=== PATIENT | male | born 1935 | race Caucasian/White ===

== ENCOUNTER 2019-09-02 08:57 | Inpatient (IN) | payer OTHER ==
--- OUTSIDE RECORDS SUMMARY | 2019-09-02 09:03 | XMS REPORT ---
:1935 [facility] [address] [place] [address] Care Team Providers Name Role Phone DR PHILIP BUTLER Unavailable Unavailable Problems This patient has no known problems. Allergies, Adverse Reactions, Alerts This patient has no known allergies or adverse reactions. Medications This patient has no known medications. Encounters Start End Encounter Admission Attending Care Care Encounter Date/Time Date/Time Type Type Clinicians Facility Department ID 2019-06-19 2019-06-28 Inpatient C PHILIP BUTLER [facility] [place] [facility] TELE [id number] 21:41:00 17:15:00 Results Test Description Test Time Test Comments Text Results Atomic Results Result Comments GLUCOMETER GLUCOSE- LAB USE ONLY 2019-06-28 11:07:00 Test Item Value Reference Range Comments GLUCOMETER (test code=GMG) 165 mg/dL 70-100 CLEANED METERMeter ID: [id number]: 9861 JOHN LOWE BODY FLUID & GRAM STAIN [id number] 09:11:00 Test Item Value Reference Range Comments Culture Observations (test NO GROWTH AFTER 5 DAYS code=COB1) Direct Exam (test code=DE1) RARE WHITE BLOOD CELLS SEEN Direct Exam (test code=DE2) NO ORGANISMS SEEN GLUCOMETER GLUCOSE- LAB USE [id number] 08:09:00 Test Item Value Reference Range Comments GLUCOMETER (test code=GMG) 103 mg/dL 70-100 Meter ID: [id number]: 9174 JOHN AMAGSILA GLUCOMETER GLUCOSE- LAB USE [id number] 06:28:00 Test Item Value Reference Range Comments GLUCOMETER (test code=GMG) 60 mg/dL 70-100 CLEANED METERMeter ID: [id number]: [id number] MARIA TERESA HAMPTON CBC (INCLUDES AUTOMATED DIFFERENTIAL)2019-06-28 05:58:00 Test Item Value Reference Range Comments WBC (test code=WBC) 8.3 10\S\3/uL 4.5-11.0 RBC (test code=RBC) 3.94 10\S\6/uL 3.80-5.80 HGB (test code=HBG) 13.2 g/dL 14.0-18.0 HCT (test code=HCT) 40.0 % 35.0-46.0 MCV (test code=MCV) 101.5 fL 80.0-94.0 MCH (test code=MCH) 33.5 pg 27.0-31.0 MCHC (test code=MCHC) 33.0 g/dL 32.0-36.0 RDW (test code=RDW) 14.7 % 11.5-14.5 PLT (test code=PLT) 56 10\S\3/uL 130-400 MPV (test code=MPV) 12.4 fL 9.4-12.4 NEUTROP # (test code=NE#) 4.9 10\S\3/uL 2.0-8.0 LYMPH # (test code=LY#) 2.2 10\S\3/uL 1.2-4.0 MONOCYTE # (test code=MO#) 0.9 10\S\3/uL 0.0-1.1 EOSINOPH # (test code=EO#) 0.2 10\S\3/uL 0.0-0.7 BASOPHIL # (test code=BA#) 0.0 10\S\3/uL 0.0-0.3 IG # (test code=IG#) 0.07 10\S\3/uL 0.00-0.06 NRBC # (test code=NRBC#) 0.00 10\S\3/uL 0.00-0.01 NEUTROPH % (test code=NE%) 58.5 % 35.0-73.0 LYMPH % (test code=LY%) 26.2 % 20.0-55.0 MONO % (test code=MO%) 11.2 % 2.5-10.0 EOSINOPH % (test code=EO%) 2.9 % 0.0-5.0 BASOPHIL % (test code=BA%) 0.4 % 0.0-2.0 IG % (test code=IG%) 0.8 % 0.0-0.8 NRBC% (test code=NRBC%) 0.0 % 0.0-0.2 MANDIFF (test code=MDIFF) NO NO RBC MORPH (test code=RBCMOR) NORMAL COMPREHENSIVE METABOLIC [id number] 05:56:00 Test Item Value Reference Range Comments GLUCOSE (test code=06D) 68 mg/dL 75-100 SODIUM (test code=01A) 131 mmol/L 136-145 POTASSIUM (test code=01B) 5.1 mmol/L 3.6-5.1 CHLORIDE (test code=04A) 96 mmol/L 98-107 CO2 (test code=02A) 25 mmol/L 22-32 ANION GAP (test code=ANG) 15.1 mmol/L BUN (test code=05D) 92 mg/dL 7-18 CREATININE (test code=03E) 8.9 mg/dL 0.7-1.3 BUN/CREA (test code=BCR) 10 12-20 CALCIUM (test code=09D) 8.2 mg/dL 8.3-9.5 BILI TOTAL (test code=11A) 1.4 mg/dL 0.2-1.0 PROTEIN (test code=07D) 7.3 g/dL 6.4-8.2 ALBUMIN (test code=08D) 3.1 g/dL 3.5-4.8 GLOBULIN (test code=GLB) 4.2 g/dL 1.5-3.8 ALB/GLOB (test code=AGRR) 0.7 1.0-2.6 ALK PHOS (test code=35A) 90 IU/L 42-121 AST (test code=30A) 37 IU/L <=42 ALT (test code=31A) 103 IU/L <=78 GLUCOMETER GLUCOSE- LAB USE [id number] 20:28:00 Test Item Value Reference Range Comments GLUCOMETER (test code=GMG) 186 mg/dL 70-100 Meter ID: [id number]: 4074 MARIA TERESA BERTA GLUCOMETER GLUCOSE- LAB USE [id number] 16:09:00 Test Item Value Reference Range Comments GLUCOMETER (test code=GMG) 148 mg/dL 70-100 CLEANED METERMeter ID: [id number]: 9861 JOHN LOWE GLUCOMETER GLUCOSE- LAB USE [id number] 10:45:00 Test Item Value Reference Range Comments GLUCOMETER (test code=GMG) 201 mg/dL 70-100 CLEANED METERMeter ID: [id number]: 9[address] JOHN LOWE [id number] 09:38:00 Test Item Value Reference Range Comments MAGNESIUM (test code=48A) 2.1 mg/dL 1.8-2.4 COMPREHENSIVE METABOLIC [id number] 06:28:00 Test Item Value Reference Range Comments GLUCOSE (test code=06D) 108 mg/dL 75-100 SODIUM (test code=01A) 132 mmol/L 136-145 POTASSIUM (test code=01B) 4.7 mmol/L 3.6-5.1 CHLORIDE (test code=04A) 98 mmol/L 98-107 CO2 (test code=02A) 25 mmol/L 22-32 ANION GAP (test code=ANG) 13.7 mmol/L BUN (test code=05D) 70 mg/dL 7-18 CREATININE (test code=03E) 8.0 mg/dL 0.7-1.3 BUN/CREA (test code=BCR) 9 12-20 CALCIUM (test code=09D) 8.2 mg/dL 8.3-9.5 BILI TOTAL (test code=11A) 1.5 mg/dL 0.2-1.0 PROTEIN (test code=07D) 7.4 g/dL 6.4-8.2 ALBUMIN (test code=08D) 3.2 g/dL 3.5-4.8 GLOBULIN (test code=GLB) 4.2 g/dL 1.5-3.8 ALB/GLOB (test code=AGRR) 0.8 1.0-2.6 ALK PHOS (test code=35A) 92 IU/L 42-121 AST (test code=30A) 42 IU/L <=42 ALT (test code=31A) 122 IU/L <=78 GLUCOMETER GLUCOSE- LAB USE [id number] 06:25:00 Test Item Value Reference Range Comments GLUCOMETER (test code=GMG) 99 mg/dL 70-100 Meter ID: [id number]: [id number] MARIVEL SNOW CBC (INCLUDES AUTOMATED DIFFERENTIAL)2019-06-27 06:12:00 Test Item Value Reference Range Comments WBC (test code=WBC) 8.4 10\S\3/uL 4.5-11.0 RBC (test code=RBC) 3.75 10\S\6/uL 3.80-5.80 HGB (test code=HBG) 12.5 g/dL 14.0-18.0 HCT (test code=HCT) 38.6 % 35.0-46.0 MCV (test code=MCV) 102.9 fL 80.0-94.0 MCH (test code=MCH) 33.3 pg 27.0-31.0 MCHC (test code=MCHC) 32.4 g/dL 32.0-36.0 RDW (test code=RDW) 15.1 % 11.5-14.5 PLT (test code=PLT) 54 10\S\3/uL 130-400 MPV (test code=MPV) 12.4 fL 9.4-12.4 NEUTROP # (test code=NE#) 4.9 10\S\3/uL 2.0-8.0 LYMPH # (test code=LY#) 2.2 10\S\3/uL 1.2-4.0 MONOCYTE # (test code=MO#) 0.9 10\S\3/uL 0.0-1.1 EOSINOPH # (test code=EO#) 0.2 10\S\3/uL 0.0-0.7 BASOPHIL # (test code=BA#) 0.0 10\S\3/uL 0.0-0.3 IG # (test code=IG#) 0.09 10\S\3/uL 0.00-0.06 NRBC # (test code=NRBC#) 0.00 10\S\3/uL 0.00-0.01 NEUTROPH % (test code=NE%) 58.5 % 35.0-73.0 LYMPH % (test code=LY%) 26.5 % 20.0-55.0 MONO % (test code=MO%) 11.0 % 2.5-10.0 EOSINOPH % (test code=EO%) 2.5 % 0.0-5.0 BASOPHIL % (test code=BA%) 0.4 % 0.0-2.0 IG % (test code=IG%) 1.1 % 0.0-0.8 NRBC% (test code=NRBC%) 0.0 % 0.0-0.2 MANDIFF (test code=MDIFF) NO NO RBC MORPH (test code=RBCMOR) NORMAL GLUCOMETER GLUCOSE- LAB USE [id number] 20:22:00 Test Item Value Reference Range Comments GLUCOMETER (test code=GMG) 191 mg/dL 70-100 Meter ID: [id number]: [id number] MARIVEL Raúl SNOW GLUCOMETER GLUCOSE- LAB USE [id number] 15:34:00 Test Item Value Reference Range Comments GLUCOMETER (test code=GMG) 155 mg/dL 70-100 CLEANED METERMeter ID: [id number]: 9861 JOHN LOWE GLUCOMETER GLUCOSE- LAB USE [id number] 11:18:00 Test Item Value Reference Range Comments GLUCOMETER (test code=GMG) 92 mg/dL 70-100 CLEANED METERMeter ID: [id number]: 9861 JOHN LOWE CBC WITH [id number] 07:06:00 Test Item Value Reference Range Comments WBC (test code=WBC) 9.3 10\S\3/uL 4.5-11.0 RBC (test code=RBC) 3.66 10\S\6/uL 3.80-5.80 HGB (test code=HBG) 12.3 g/dL 14.0-18.0 HCT (test code=HCT) 38.1 % 35.0-46.0 MCV (test code=MCV) 104.1 fL 80.0-94.0 MCH (test code=MCH) 33.6 pg 27.0-31.0 MCHC (test code=MCHC) 32.3 g/dL 32.0-36.0 RDW (test code=RDW) 15.0 % 11.5-14.5 PLT (test code=PLT) 51 10\S\3/uL 130-400 MPV (test code=MPV) 12.7 fL 9.4-12.4 NEUTROP # (test code=NE#) 5.5 10\S\3/uL 2.0-8.0 LYMPH # (test code=LY#) 2.4 10\S\3/uL 1.2-4.0 MONOCYTE # (test code=MO#) 1.0 10\S\3/uL 0.0-1.1 EOSINOPH # (test code=EO#) 0.2 10\S\3/uL 0.0-0.7 BASOPHIL # (test code=BA#) 0.0 10\S\3/uL 0.0-0.3 IG # (test code=IG#) 0.08 10\S\3/uL 0.00-0.06 NRBC # (test code=NRBC#) 0.00 10\S\3/uL 0.00-0.01 NEUTROPH % (test code=NE%) 59.7 % 35.0-73.0 LYMPH % (test code=LY%) 26.3 % 20.0-55.0 MONO % (test code=MO%) 10.6 % 2.5-10.0 EOSINOPH % (test code=EO%) 2.2 % 0.0-5.0 BASOPHIL % (test code=BA%) 0.3 % 0.0-2.0 IG % (test code=IG%) 0.9 % 0.0-0.8 NRBC% (test code=NRBC%) 0.0 % 0.0-0.2 PLT EST (test code=PLTEST) DECREASED ADEQUATE PLT MORPH (test code=PLTMOR) NORMAL (1.5-3 um) NORMAL GLUCOMETER GLUCOSE- LAB USE [id number] 05:57:00 Test Item Value Reference Range Comments GLUCOMETER (test code=GMG) 79 mg/dL 70-100 CLEANED METERMeter ID: [id number]: 4074 [facility] METABOLIC [id number] 05:35:00 Test Item Value Reference Range Comments GLUCOSE (test code=06D) 93 mg/dL 75-100 SODIUM (test code=01A) 134 mmol/L 136-145 POTASSIUM (test code=01B) 4.9 mmol/L 3.6-5.1 CHLORIDE (test code=04A) 99 mmol/L 98-107 CO2 (test code=02A) 24 mmol/L 22-32 ANION GAP (test code=ANG) 15.9 mmol/L BUN (test code=05D) 95 mg/dL 7-18 CREATININE (test code=03E) 9.7 mg/dL 0.7-1.3 BUN/CREA (test code=BCR) 10 12-20 CALCIUM (test code=09D) 8.0 mg/dL 8.3-9.5 BILI TOTAL (test code=11A) 1.4 mg/dL 0.2-1.0 PROTEIN (test code=07D) 6.9 g/dL 6.4-8.2 ALBUMIN (test code=08D) 3.0 g/dL 3.5-4.8 GLOBULIN (test code=GLB) 3.9 g/dL 1.5-3.8 ALB/GLOB (test code=AGRR) 0.8 1.0-2.6 ALK PHOS (test code=35A) 84 IU/L 42-121 AST (test code=30A) 37 IU/L <=42 ALT (test code=31A) 146 IU/L <=78 GLUCOMETER GLUCOSE- LAB USE [id number] 20:27:00 Test Item Value Reference Range Comments GLUCOMETER (test code=GMG) 146 mg/dL 70-100 Meter ID: [id number]: 4074 MARIA TERESA BERTA GLUCOMETER GLUCOSE- LAB USE [id number] 15:50:00 Test Item Value Reference Range Comments GLUCOMETER (test code=GMG) 167 mg/dL 70-100 CLEANED METERMeter ID: [id number]: 9861 JOHN LOWE GLUCOMETER GLUCOSE- LAB USE [id number] 11:15:00 Test Item Value Reference Range Comments GLUCOMETER (test code=GMG) 127 mg/dL 70-100 CLEANED METERMeter ID: [id number]: 9861 JOHN LOWE XR CHEST 1 VIEW [id number] 06:29:51Portable AP chest, 1 viewLocation Code: A3WROYCTNS HISTORY: [id number]: Pulmonary congestionCOMPARISON: COMMENT: The heart size is enlarged with diffuse pulmonary edema pattern along withpatchy bibasilar infiltrates and small effusions without significant change.Left subclavian AICD along with prior sternotomy again noted.IMPRESSION: No significant change.COMPREHENSIVE METABOLIC [id number] 05:57:00 Test Item Value Reference Range Comments GLUCOSE (test code=06D) 110 mg/dL 75-100 SODIUM (test code=01A) 133 mmol/L 136-145 POTASSIUM (test code=01B) 4.7 mmol/L 3.6-5.1 CHLORIDE (test code=04A) 100 mmol/L 98-107 CO2 (test code=02A) 25 mmol/L 22-32 ANION GAP (test code=ANG) 12.7 mmol/L BUN (test code=05D) 80 mg/dL 7-18 CREATININE (test code=03E) 8.3 mg/dL 0.7-1.3 BUN/CREA (test code=BCR) 10 12-20 CALCIUM (test code=09D) 8.0 mg/dL 8.3-9.5 BILI TOTAL (test code=11A) 1.9 mg/dL 0.2-1.0 PROTEIN (test code=07D) 6.8 g/dL 6.4-8.2 ALBUMIN (test code=08D) 3.0 g/dL 3.5-4.8 GLOBULIN (test code=GLB) 3.8 g/dL 1.5-3.8 ALB/GLOB (test code=AGRR) 0.8 1.0-2.6 ALK PHOS (test code=35A) 82 IU/L 42-121 AST (test code=30A) 41 IU/L <=42 ALT (test code=31A) 186 IU/L <=78 GLUCOMETER GLUCOSE- LAB USE [id number] 05:55:00 Test Item Value Reference Range Comments GLUCOMETER (test code=GMG) 100 mg/dL 70-100 Meter ID: [id number]: 9586 ZULEIKA UKAGWU CBC (INCLUDES AUTOMATED DIFFERENTIAL)2019-06-25 05:34:00 Test Item Value Reference Range Comments WBC (test code=WBC) 8.0 10\S\3/uL 4.5-11.0 RBC (test code=RBC) 3.97 10\S\6/uL 3.80-5.80 HGB (test code=HBG) 13.1 g/dL 14.0-18.0 HCT (test code=HCT) 40.4 % 35.0-46.0 MCV (test code=MCV) 101.8 fL 80.0-94.0 MCH (test code=MCH) 33.0 pg 27.0-31.0 MCHC (test code=MCHC) 32.4 g/dL 32.0-36.0 RDW (test code=RDW) 15.0 % 11.5-14.5 PLT (test code=PLT) 39 10\S\3/uL 130-400 MPV (test code=MPV) 12.3 fL 9.4-12.4 NEUTROP # (test code=NE#) 4.4 10\S\3/uL 2.0-8.0 LYMPH # (test code=LY#) 2.6 10\S\3/uL 1.2-4.0 MONOCYTE # (test code=MO#) 0.7 10\S\3/uL 0.0-1.1 EOSINOPH # (test code=EO#) 0.2 10\S\3/uL 0.0-0.7 BASOPHIL # (test code=BA#) 0.0 10\S\3/uL 0.0-0.3 IG # (test code=IG#) 0.10 10\S\3/uL 0.00-0.06 NRBC # (test code=NRBC#) 0.00 10\S\3/uL 0.00-0.01 NEUTROPH % (test code=NE%) 54.8 % 35.0-73.0 LYMPH % (test code=LY%) 32.2 % 20.0-55.0 MONO % (test code=MO%) 8.9 % 2.5-10.0 EOSINOPH % (test code=EO%) 2.3 % 0.0-5.0 BASOPHIL % (test code=BA%) 0.5 % 0.0-2.0 IG % (test code=IG%) 1.3 % 0.0-0.8 NRBC% (test code=NRBC%) 0.0 % 0.0-0.2 MANDIFF (test code=MDIFF) NO NO RBC MORPH (test code=RBCMOR) NORMAL GLUCOMETER GLUCOSE- LAB USE [id number] 20:42:00 Test Item Value Reference Range Comments GLUCOMETER (test code=GMG) 178 mg/dL 70-100 Meter ID: [id number]: 9722 MEIR DARIUSU GLUCOMETER GLUCOSE- LAB USE [id number] 15:50:00 Test Item Value Reference Range Comments GLUCOMETER (test code=GMG) 163 mg/dL 70-100 CLEANED METERMeter ID: [id number]: 9861 JOHN LOWE GLUCOMETER GLUCOSE- LAB USE [id number] 11:08:00 Test Item Value Reference Range Comments GLUCOMETER (test code=GMG) 132 mg/dL 70-100 CLEANED METERMeter ID: [id number]: 9861 JOHN LOWE XR CHEST 1 VIEW [id number] 08:03:01EXAM: Portable chest one view.Location code:[id number]: DyspneaCOMPARISON: None available.COMMENT: Again noted is a left-sided AICD and mediastinal wires.. Stableprominent interstitial lung markings.. . Cardiac silhouette is normal insize and contour. Visualized skeletal structures are unremarkable.IMPRESSION: No significant interval change.GLUCOMETER GLUCOSE- LAB USE [id number] 07:24:00 Test Item Value Reference Range Comments GLUCOMETER (test code=GMG) 94 mg/dL 70-100 Meter ID: [id number]: [address] [facility] COMPREHENSIVE METABOLIC [id number] 06:13:00 Test Item Value Reference Range Comments GLUCOSE (test code=06D) 93 mg/dL 75-100 SODIUM (test code=01A) 136 mmol/L 136-145 POTASSIUM (test code=01B) 4.0 mmol/L 3.6-5.1 CHLORIDE (test code=04A) 100 mmol/L 98-107 CO2 (test code=02A) 29 mmol/L 22-32 ANION GAP (test code=ANG) 11.0 mmol/L BUN (test code=05D) 56 mg/dL 7-18 CREATININE (test code=03E) 6.6 mg/dL 0.7-1.3 BUN/CREA (test code=BCR) 9 12-20 CALCIUM (test code=09D) 8.2 mg/dL 8.3-9.5 BILI TOTAL (test code=11A) 2.2 mg/dL 0.2-1.0 PROTEIN (test code=07D) 6.8 g/dL 6.4-8.2 ALBUMIN (test code=08D) 3.1 g/dL 3.5-4.8 GLOBULIN (test code=GLB) 3.7 g/dL 1.5-3.8 ALB/GLOB (test code=AGRR) 0.8 1.0-2.6 ALK PHOS (test code=35A) 83 IU/L 42-121 AST (test code=30A) 58 IU/L <=42 ALT (test code=31A) 239 IU/L <=78 CBC (INCLUDES AUTOMATED DIFFERENTIAL)2019-06-24 05:55:00 Test Item Value Reference Range Comments WBC (test code=WBC) 7.9 10\S\3/uL 4.5-11.0 RBC (test code=RBC) 3.84 10\S\6/uL 3.80-5.80 HGB (test code=HBG) 12.9 g/dL 14.0-18.0 HCT (test code=HCT) 39.1 % 35.0-46.0 MCV (test code=MCV) 101.8 fL 80.0-94.0 MCH (test code=MCH) 33.6 pg 27.0-31.0 MCHC (test code=MCHC) 33.0 g/dL 32.0-36.0 RDW (test code=RDW) 15.4 % 11.5-14.5 PLT (test code=PLT) 36 10\S\3/uL 130-400 MPV (test code=MPV) 12.3 fL 9.4-12.4 NEUTROP # (test code=NE#) 4.8 10\S\3/uL 2.0-8.0 LYMPH # (test code=LY#) 2.3 10\S\3/uL 1.2-4.0 MONOCYTE # (test code=MO#) 0.6 10\S\3/uL 0.0-1.1 EOSINOPH # (test code=EO#) 0.1 10\S\3/uL 0.0-0.7 BASOPHIL # (test code=BA#) 0.0 10\S\3/uL 0.0-0.3 IG # (test code=IG#) 0.10 10\S\3/uL 0.00-0.06 NRBC # (test code=NRBC#) 0.02 10\S\3/uL 0.00-0.01 NEUTROPH % (test code=NE%) 60.8 % 35.0-73.0 LYMPH % (test code=LY%) 28.6 % 20.0-55.0 MONO % (test code=MO%) 7.4 % 2.5-10.0 EOSINOPH % (test code=EO%) 1.6 % 0.0-5.0 BASOPHIL % (test code=BA%) 0.3 % 0.0-2.0 IG % (test code=IG%) 1.3 % 0.0-0.8 NRBC% (test code=NRBC%) 0.3 % 0.0-0.2 MANDIFF (test code=MDIFF) NO NO RBC MORPH (test code=RBCMOR) NORMAL GLUCOMETER GLUCOSE- LAB USE [id number] 20:02:00 Test Item Value Reference Range Comments GLUCOMETER (test code=GMG) 165 mg/dL 70-100 CLEANED METERMeter ID: [id number]: 5742 MIAH OLMOS CELL COUNT & DIFF PERITON [id number] 16:55:00 Test Item Value Reference Range Comments FLD_TYPE (test code=FLDTYPE) PERITONEAL COLOR BF (test code=COLBF) XANTHACHROMIC APPEAR BF (test code=APPBF) CLOUDY WBC BF (test code=WBCCBF) 0.872 10\S\3/uL RBC BF (test code=RBCCBF) 0.008 10\S\6/uL MN# (test code=MN#) 0.808 10\S\3/uL MN % (test code=MN%) 92.7 % PMN# (test code=PMN#) 0.064 10\S\3/uL PMN % (test code=PMN%) 7.3 % NEUTRO BF (test code=NEUTBF) 8 % LYMPH BF (test code=LYMPBF) 72 % MONO BF (test code=MONOBF) 2 % EOS BF (test code=EOSBF) % BASO BF (test code=BABF) % MESOTHELIA (test code=MESOBF) 6 % MACROPH BF (test 12 % code=MACROBF) PLASMA BF (test code=PLSMBF) % OTHER BF (test code=OTHBF) % COMMENT (test code=CO) RRPRF (test code=RRPRF) REFERENCE RANGE PERITONEAL FLUID COLOR PALE YELLOW/STRAW CLARITY CLEAR WBC <100/CMM RBC 0/CMM MACROPHAGES &MESOTHELIAL CELLS >70% LYMPHOCYTES <18% NEUTROPHILS <7% PROTEIN BODY [id number] 16:25:00 Test Item Value Reference Range Comments PROT BF (test code=PBF) 4.1 g/dL SOURCE (test code=BFC) PERITONEAL NRR (test code=NRR) * NO REFRENCE RANGE AVAILABLE FOR RANDOM SPECIMEN* ALBUMIN BODY [id number] 16:20:00 Test Item Value Reference Range Comments ALBUMIN FLUID (test 2 g/dL code=ALBF) SOURCE (test code=BFC) PERITONEAL NRR (test code=NRR) * NO REFRENCE RANGE AVAILABLE FOR RANDOM SPECIMEN* U/S GUIDANCE [id number] 16:12:26EXAMINATION: IMAGE-GUIDED PARACENTESIS.LOCATION: D4.HISTORY: [id number]: AscitesSEDATION: The patientdid not require conscious sedation for the procedure.ANTIBIOTICS: None. Not indicated.TECHNIQUE: The risks, benefits, and alternatives were discussed and informedconsent was obtained. Prior to beginning the procedure, [place] Protocol wasused to confirm the patient's identity and planned procedure. Sterile barriersincluding cap, mask, hand hygiene, sterile gloves, sterile drape and cutaneousantisepsis were used.The patient's abdomen was examined with ultrasound and a suitable pocket ofascitic fluid in the right lower quadrant was identified. The overlying skinwas anesthetized with lidocaine. Using real- time ultrasound guidance, aOne-Step centesis needle was advanced into the ascitic fluid. Approximately 1.9 L of serous fluid was drained. Samples were sent for labanalysis. At the conclusionof the procedure, the catheter was removed and a steriledressing applied to the site.ESTIMATED BLOODLOSS: Less than 10 milliliters.COMPLICATIONS: None.DISCHARGED TO: Inpatient unit Outpatient recoveryFINDINGS: Ultrasound demonstrated a moderate amount of ascitic fluid.IMPRESSION: Successful image-guided paracentesis. Approximately 1.9 L of fluidwas drained.GLUCOMETER GLUCOSE- LAB USE [id number] 16:01:00 Test Item Value Reference Range Comments GLUCOMETER (test code=GMG) 266 mg/dL 70-100 Meter ID: [id number]: [id number] MUKUN[address] MIRTO GLUCOMETER GLUCOSE- LAB USE [id number] 11:23:00 Test Item Value Reference Range Comments GLUCOMETER (test code=GMG) 88 mg/dL 70-100 Meter ID: [id number]: [id number] MUKUN[address] MIRTO VANCOMYCIN [id number] 09:37:00 Test Item Value Reference Range Comments VANC RANDOM (test code=VANCR) 8.5 ug/dL 10.0-20.0 XR CHEST 1 VIEW [id number] 07:52:08CLINICAL INFORMATION: Pulmonary congestion.[facility]19 reported as stable.FINDINGS: Portable frontal view of the chest taken at 600 hours showsmonitoring electrodes overlying the chest wall. Sternal wire sutures and pacemaker noted. Heart appears mildly prominent withvascular interstitial prominence. Small basilar consolidations and effusions.Impression:1. Postoperative chest with pacemaker in place.2. Changes in the chest suggest cardiac decompensation or fluid overload,emphasized by suboptimal depth of inspiration.COMPREHENSIVE METABOLIC [id number] 05:21:00 Test Item Value Reference Range Comments GLUCOSE (test code=06D) 89 mg/dL 75-100 SODIUM (test code=01A) 134 mmol/L 136-145 POTASSIUM (test code=01B) 4.3 mmol/L 3.6-5.1 CHLORIDE (test code=04A) 99 mmol/L 98-107 CO2 (test code=02A) 27 mmol/L 22-32 ANION GAP (test code=ANG) 12.3 mmol/L BUN (test code=05D) 57 mg/dL 7-18 CREATININE (test code=03E) 6.6 mg/dL 0.7-1.3 BUN/CREA (test code=BCR) 9 12-20 CALCIUM (test code=09D) 8.3 mg/dL 8.3-9.5 BILI TOTAL (test code=11A) 1.9 mg/dL 0.2-1.0 PROTEIN (test code=07D) 6.9 g/dL 6.4-8.2 ALBUMIN (test code=08D) 3.0 g/dL 3.5-4.8 GLOBULIN (test code=GLB) 3.9 g/dL 1.5-3.8 ALB/GLOB (test code=AGRR) 0.8 1.0-2.6 ALK PHOS (test code=35A) 89 IU/L 42-121 AST (test code=30A) 114 IU/L <=42 ALT (test code=31A) 389 IU/L <=78 CBC (INCLUDES AUTOMATED DIFFERENTIAL)2019-06-23 04:54:00 Test Item Value Reference Range Comments WBC (test code=WBC) 7.8 10\S\3/uL 4.5-11.0 RBC (test code=RBC) 4.22 10\S\6/uL 3.80-5.80 HGB (test code=HBG) 14.1 g/dL 14.0-18.0 HCT (test code=HCT) 43.2 % 35.0-46.0 MCV (test code=MCV) 102.4 fL 80.0-94.0 MCH (test code=MCH) 33.4 pg 27.0-31.0 MCHC (test code=MCHC) 32.6 g/dL 32.0-36.0 RDW (test code=RDW) 15.5 % 11.5-14.5 PLT (test code=PLT) 46 10\S\3/uL 130-400 MPV (test code=MPV) 12.4 fL 9.4-12.4 NEUTROP # (test code=NE#) 4.9 10\S\3/uL 2.0-8.0 LYMPH # (test code=LY#) 2.1 10\S\3/uL 1.2-4.0 MONOCYTE # (test code=MO#) 0.5 10\S\3/uL 0.0-1.1 EOSINOPH # (test code=EO#) 0.1 10\S\3/uL 0.0-0.7 BASOPHIL # (test code=BA#) 0.0 10\S\3/uL 0.0-0.3 IG # (test code=IG#) 0.08 10\S\3/uL 0.00-0.06 NRBC # (test code=NRBC#) 0.03 10\S\3/uL 0.00-0.01 NEUTROPH % (test code=NE%) 62.5 % 35.0-73.0 LYMPH % (test code=LY%) 27.4 % 20.0-55.0 MONO % (test code=MO%) 6.9 % 2.5-10.0 EOSINOPH % (test code=EO%) 1.8 % 0.0-5.0 BASOPHIL % (test code=BA%) 0.4 % 0.0-2.0 IG % (test code=IG%) 1.0 % 0.0-0.8 NRBC% (test code=NRBC%) 0.4 % 0.0-0.2 MANDIFF (test code=MDIFF) NO NO RBC MORPH (test code=RBCMOR) NORMAL GLUCOMETER GLUCOSE- LAB USE [id number] 20:17:00 Test Item Value Reference Range Comments GLUCOMETER (test code=GMG) 115 mg/dL 70-100 Meter ID: [id number]: [id number] FUAD AMODIA GLUCOMETER GLUCOSE- LAB USE [id number] 16:38:00 Test Item Value Reference Range Comments GLUCOMETER (test code=GMG) 83 mg/dL 70-100 CLEANED METERMeter ID: [id number]: [id number] DILSHAD PALADA GLUCOMETER GLUCOSE- LAB USE [id number] 11:12:00 Test Item Value Reference Range Comments GLUCOMETER (test code=GMG) 137 mg/dL 70-100 CLEANED METERMeter ID: [id number]: [id number] DILSHAD MUSTAFA HEPATITIS B CORE IgM [id number] 09:51:00 Test Item Value Reference Range Comments HEPATITIS B CORE ANTIBODY NON-REACTIVE NON-REACTIVE TEST PERFORMED AT:[facility] (IGM) (test kncx=[id number]) DIAGNOSTICS [id number] [place] [id number] VALDES MD HEPATITIS A IGM [id number] 09:50:00 Test Item Value Reference Range Comments HEPATITIS A IGM (test NON-REACTIVE NON-REACTIVE For additional information, pune=[phone]) please refer [email or web address].[employer]/faq/MYK079(This link is being provided for informational/educational purposes only.)TEST PERFORMED AT:[facility] [address] [id number] VALDES MD XR CHEST 1 VIEW [id number] 07:46:14CLINICAL INFORMATION: Pulmonary congestion.Dictation location: 16COMPARISON:06/21/19 reported congestion and effusions.FINDINGS: Portable frontal view of the chest taken at 600 hours showsmonitoring electrodes overlying the chest wall. Sternal wire sutures andpacemaker remain. Bilateral vascular interstitial prominence is essentiallyunchanged. Patchy bibasilar opacities are unchanged. No new consolidation oreffusion. Bones stable.Impression: Essentially no change.BASIC METABOLIC [id number] 05:37:00 Test Item Value Reference Range Comments GLUCOSE (test code=06D) 129 mg/dL 75-100 SODIUM (test code=01A) 136 mmol/L 136-145 POTASSIUM (test code=01B) 3.6 mmol/L 3.6-5.1 CHLORIDE (test code=04A) 99 mmol/L 98-107 CO2 (test code=02A) 30 mmol/L 22-32 ANION GAP (test code=ANG) 10.6 mmol/L BUN (test code=05D) 30 mg/dL 7-18 CREATININE (test code=03E) 5.1 mg/dL 0.7-1.3 BUN/CREA (test code=BCR) 6 12-20 CALCIUM (test code=09D) 8.3 mg/dL 8.3-9.5 CBC (INCLUDES AUTOMATED DIFFERENTIAL)2019-06-22 05:00:00 Test Item Value Reference Range Comments WBC (test code=WBC) 7.2 10\S\3/uL 4.5-11.0 RBC (test code=RBC) 3.89 10\S\6/uL 3.80-5.80 HGB (test code=HBG) 13.1 g/dL 14.0-18.0 HCT (test code=HCT) 40.6 % 35.0-46.0 MCV (test code=MCV) 104.4 fL 80.0-94.0 MCH (test code=MCH) 33.7 pg 27.0-31.0 MCHC (test code=MCHC) 32.3 g/dL 32.0-36.0 RDW (test code=RDW) 15.6 % 11.5-14.5 PLT (test code=PLT) 45 10\S\3/uL 130-400 MPV (test code=MPV) 12.7 fL 9.4-12.4 NEUTROP # (test code=NE#) 4.6 10\S\3/uL 2.0-8.0 LYMPH # (test code=LY#) 1.9 10\S\3/uL 1.2-4.0 MONOCYTE # (test code=MO#) 0.4 10\S\3/uL 0.0-1.1 EOSINOPH # (test code=EO#) 0.2 10\S\3/uL 0.0-0.7 BASOPHIL # (test code=BA#) 0.0 10\S\3/uL 0.0-0.3 IG # (test code=IG#) 0.06 10\S\3/uL 0.00-0.06 NRBC # (test code=NRBC#) 0.06 10\S\3/uL 0.00-0.01 NEUTROPH % (test code=NE%) 64.1 % 35.0-73.0 LYMPH % (test code=LY%) 26.9 % 20.0-55.0 MONO % (test code=MO%) 5.7 % 2.5-10.0 EOSINOPH % (test code=EO%) 2.2 % 0.0-5.0 BASOPHIL % (test code=BA%) 0.3 % 0.0-2.0 IG % (test code=IG%) 0.8 % 0.0-0.8 NRBC% (test code=NRBC%) 0.8 % 0.0-0.2 MANDIFF (test code=MDIFF) NO NO RBC MORPH (test code=RBCMOR) NORMAL NM HIDA [id number] 02:58:23DICTATION LOCATION: [id number]: Male, 83 years of age. Liver function tests abnormal. Gallbladdersludge and wall thickening on ultrasound.EXAM: NUCLEAR MEDICINE HEPATOBILIARY SCANCOMPARISON: Right upper quadrant ultrasound performed 06/20/2019TECHNIQUE: After IV injection of 6 mCi Tc 99m Choletec, sequential images wereobtained over the upper abdomen out to 60 minutes. Additional delayed staticimages were were obtained after one hour.FINDINGS: There is homogeneous distribution of tracer in the liver. There isnormal appearance of tracer in small bowel by 20 minutes. Tracer is not seen inthe gallbladder until after one hour.IMPRESSION: 1. No evidence for cystic duct obstruction to indicate acutecholecystitis.2. Delayed appearance of tracer in gallbladder could reflect cholestasis orchronic cholecystitis.GLUCOMETER GLUCOSE- LAB USE [id number] 16:58:00 Test Item Value Reference Range Comments GLUCOMETER (test code=GMG) 133 mg/dL 70-100 CLEANED METERMeter ID: [id number]: [id number] DILSHAD MUSTAFA HEPATITIS C [id number] 15:31:00 Test Item Value Reference Range Comments HCAB (test code=HCAB) NON-REACTIVE NON-REACTIVE LIVER [id number] 12:31:00 Test Item Value Reference Range Comments BILI TOTAL (test code=11A) 1.9 mg/dL 0.2-1.0 BILI DIRCT (test code=12A) 1.0 mg/dL 0.0-0.2 BILI INDIR (test code=BILII) 0.9 mg/dL <=0.8 PROTEIN (test code=07D) 7.5 g/dL 6.4-8.2 ALBUMIN (test code=08D) 3.6 g/dL 3.5-4.8 GLOBULIN (test code=GLB) 3.9 g/dL 1.5-3.8 ALB/GLOB (test code=AGRR) 0.9 1.0-2.6 ALK PHOS (test code=35A) 97 IU/L 42-121 AST (test code=30A) 282 IU/L <=42 ALT (test code=31A) 713 IU/L <=78 PRO TIME AND [id number] 12:12:00 Test Item Value Reference Range Comments PT (test code=TT) 17.6 s 9.8-13.6 INR (test code=INR) 1.5 INRH (test code=INRH) SUGGESTED THERAPEUTIC RANGE FOR INR: 2.5 - 3.5 For Patients with Prosthetic Valves or Patients with recurrent Thromboembolic Events 2.0 - 3.0 For Most Other Applications PTT (test code=PTT) 38.4 s 20.2-38.0 PTTH (test code=PTTH) To monitor the effectiveness of heparin, we offer the Anti-Xa (Heparin Assay). It can be used for either unfractionated or LMW Heparin. Order Code is ANTI-XA B12 [id number] 12:05:00 Test Item Value Reference Range Comments VIT B12 (test code=A60) >6000.0 pg/mL 180.0-914.0 GLUCOMETER GLUCOSE- LAB USE [id number] 11:25:00 Test Item Value Reference Range Comments GLUCOMETER (test code=GMG) 160 mg/dL 70-100 CLEANED METERMeter ID: [id number]: [id number] DILSHAD MUSTAFA HEPATITIS B SURFACE [id number] 11:10:00 Test Item Value Reference Range Comments HBSAG (test code=HBSAG) NON-REACTIVE NON-REACTIVE HEPATITIS B CORE IgM ANTIBODY *WW*2019-06-21 09:38:00 Test Item Value Reference Range Comments HEPATITIS B CORE ANTIBODY NON-REACTIVE NON-REACTIVE TEST PERFORMED AT:[facility] (IGM) (test qhru=[id number]) DIAGNOSTICS [id number] [place] [address]ASHULLTRAY VALDES MD XR CHEST 1 VIEW [id number] 08:19:53Portable AP chest, 1 viewLocation Code: [id number] HISTORY: Pulmonary congestionCOMPARISON: 06/20/19COMMENT: Mild central congestion remains. Patchy bibasilar airspace disease with likelysmall effusions appear stable. The cardiomediastinal silhouette is unchanged.There is no acute osseous abnormality.IMPRESSION: Stable congestion and edema with bibasilar airspace disease andsmall bilateral effusions.BASIC METABOLIC [id number] 06:31:00 Test Item Value Reference Range Comments GLUCOSE (test code=06D) 216 mg/dL 75-100 SODIUM (test code=01A) 135 mmol/L 136-145 POTASSIUM (test code=01B) 5.3 mmol/L 3.6-5.1 CHLORIDE (test code=04A) 99 mmol/L 98-107 CO2 (test code=02A) 29 mmol/L 22-32 ANION GAP (test code=ANG) 12.3 mmol/L BUN (test code=05D) 41 mg/dL 7-18 CREATININE (test code=03E) 6.0 mg/dL 0.7-1.3 BUN/CREA (test code=BCR) 7 12-20 CALCIUM (test code=09D) 8.0 mg/dL 8.3-9.5 CBC (INCLUDES AUTOMATED DIFFERENTIAL)2019-06-21 05:47:00 Test Item Value Reference Range Comments WBC (test code=WBC) 6.0 10\S\3/uL 4.5-11.0 RBC (test code=RBC) 3.97 10\S\6/uL 3.80-5.80 HGB (test code=HBG) 13.3 g/dL 14.0-18.0 HCT (test code=HCT) 41.4 % 35.0-46.0 MCV (test code=MCV) 104.3 fL 80.0-94.0 MCH (test code=MCH) 33.5 pg 27.0-31.0 MCHC (test code=MCHC) 32.1 g/dL 32.0-36.0 RDW (test code=RDW) 15.6 % 11.5-14.5 PLT (test code=PLT) 57 10\S\3/uL 130-400 MPV (test code=MPV) 12.9 fL 9.4-12.4 NEUTROP # (test code=NE#) 3.9 10\S\3/uL 2.0-8.0 LYMPH # (test code=LY#) 1.5 10\S\3/uL 1.2-4.0 MONOCYTE # (test code=MO#) 0.4 10\S\3/uL 0.0-1.1 EOSINOPH # (test code=EO#) 0.1 10\S\3/uL 0.0-0.7 BASOPHIL # (test code=BA#) 0.0 10\S\3/uL 0.0-0.3 IG # (test code=IG#) 0.05 10\S\3/uL 0.00-0.06 NRBC # (test code=NRBC#) 0.08 10\S\3/uL 0.00-0.01 NEUTROPH % (test code=NE%) 65.4 % 35.0-73.0 LYMPH % (test code=LY%) 25.8 % 20.0-55.0 MONO % (test code=MO%) 6.0 % 2.5-10.0 EOSINOPH % (test code=EO%) 1.7 % 0.0-5.0 BASOPHIL % (test code=BA%) 0.3 % 0.0-2.0 IG % (test code=IG%) 0.8 % 0.0-0.8 NRBC% (test code=NRBC%) 1.3 % 0.0-0.2 MANDIFF (test code=MDIFF) NO NO RBC MORPH (test code=RBCMOR) NORMAL U/S [id number] 02:48:56EXAM: LIMITED ABDOMINAL ULTRASOUNDINDICATION: [id number]: Liver function tests abnormalLOCATION CODE:R 16COMPARISON: None available.TECHNIQUE:Grayscale and limited color sonographic evaluation of the right upper quadrantwas performed.FINDINGS: LIVER:The right liver measures 16.7 cm in craniocaudal dimension. No focal hepaticlesions are identified. BILE DUCTS :No intrahepatic biliary duct dilatation isseen. The common bile duct measures0.4 cm.GALLBLADDER:Sludge is seen within the gallbladder. Gallbladder wall measures 0.4 cm inthickness. Sonographic Pereira sign is negative.PANCREAS: Not well seen due to overlying bowel gas.KIDNEY:The right kidney measures 9.8 x 5.2 x 4.7 cm. There is normal renal contour and morphology, with normal parenchymalechotexture. There is no hydronephrosis.AORTA AND INFERIOR VENA CAVA: Visualized portions appear unremarkable.ASCITES:Moderate volume ascites is present. A right pleural effusion is noted. IMPRESSION:1. Gallbladder sludge with mildly thickened gallbladder wall, equivocal foracute cholecystitis. If there is clinical concern for acute cholecystitisrecommendfurther evaluation with HIDA scan.2. Moderate volume ascites.3. Right pleural effusion.GLUCOMETER GLUCOSE- LAB USE [id number] 21:54:00 Test Item Value Reference Range Comments GLUCOMETER (test code=GMG) 255 mg/dL 70-100 Meter ID: [id number]: [id number] XUDeacon PEREZ GLUCOMETER GLUCOSE- LAB USE [id number] 16:08:00 Test Item Value Reference Range Comments GLUCOMETER (test code=GMG) 199 mg/dL 70-100 CLEANED METERMeter ID: [id number]: [id number] FELIPE MCDONALD CBC WITH [id number] 12:55:00 Test Item Value Reference Range Comments WBC (test code=WBC) 7.1 10\S\3/uL 4.5-11.0 RBC (test code=RBC) 4.09 10\S\6/uL 3.80-5.80 HGB (test code=HBG) 13.7 g/dL 14.0-18.0 HCT (test code=HCT) 42.7 % 35.0-46.0 MCV (test code=MCV) 104.4 fL 80.0-94.0 MCH (test code=MCH) 33.5 pg 27.0-31.0 MCHC (test code=MCHC) 32.1 g/dL 32.0-36.0 RDW (test code=RDW) 15.5 % 11.5-14.5 PLT (test code=PLT) 55 10\S\3/uL 130-400 MPV (test code=MPV) 13.5 fL 9.4-12.4 NEUTROP # (test code=NE#) 5.3 10\S\3/uL 2.0-8.0 LYMPH # (test code=LY#) 1.4 10\S\3/uL 1.2-4.0 MONOCYTE # (test code=MO#) 0.3 10\S\3/uL 0.0-1.1 EOSINOPH # (test code=EO#) 0.0 10\S\3/uL 0.0-0.7 BASOPHIL # (test code=BA#) 0.0 10\S\3/uL 0.0-0.3 IG # (test code=IG#) 0.04 10\S\3/uL 0.00-0.06 NRBC # (test code=NRBC#) 0.11 10\S\3/uL 0.00-0.01 NEUTROPH % (test code=NE%) 75.4 % 35.0-73.0 LYMPH % (test code=LY%) 19.3 % 20.0-55.0 MONO % (test code=MO%) 4.0 % 2.5-10.0 EOSINOPH % (test code=EO%) 0.4 % 0.0-5.0 BASOPHIL % (test code=BA%) 0.3 % 0.0-2.0 IG % (test code=IG%) 0.6 % 0.0-0.8 NRBC% (test code=NRBC%) 1.6 % 0.0-0.2 PLT EST (test code=PLTEST) DECREASED ADEQUATE PLT MORPH (test code=PLTMOR) LARGE (4-7 um) NORMAL MACRO (test code=MACRO) 1+ NONE POLYCHROM (test code=POLY) 1+ NONE TROPONIN [id number] 12:49:00 Test Item Value Reference Range Comments TROPONIN I (test code=A84) 1.210 ng/mL 0.000-0.045 COMPREHENSIVE METABOLIC [id number] 12:43:00 Test Item Value Reference Range Comments GLUCOSE (test code=06D) 225 mg/dL 75-100 SODIUM (test code=01A) 137 mmol/L 136-145 POTASSIUM (test code=01B) 4.0 mmol/L 3.6-5.1 CHLORIDE (test code=04A) 98 mmol/L 98-107 CO2 (test code=02A) 30 mmol/L 22-32 ANION GAP (test code=ANG) 13.0 mmol/L BUN (test code=05D) 50 mg/dL 7-18 CREATININE (test code=03E) 6.8 mg/dL 0.7-1.3 BUN/CREA (test code=BCR) 7 12-20 CALCIUM (test code=09D) 7.4 mg/dL 8.3-9.5 BILI TOTAL (test code=11A) 1.4 mg/dL 0.2-1.0 PROTEIN (test code=07D) 6.5 g/dL 6.4-8.2 ALBUMIN (test code=08D) 2.7 g/dL 3.5-4.8 GLOBULIN (test code=GLB) 3.8 g/dL 1.5-3.8 ALB/GLOB (test code=AGRR) 0.7 1.0-2.6 ALK PHOS (test code=35A) 101 IU/L 42-121 AST (test code=30A) 586 IU/L <=42 ALT (test code=31A) 980 IU/L <=78 PRO TIME AND [id number] 12:39:00 Test Item Value Reference Range Comments PT (test code=TT) 20.8 s 9.8-13.6 INR (test code=INR) 1.8 INRH (test code=INRH) SUGGESTED THERAPEUTIC RANGE FOR INR: 2.5 - 3.5 For Patients with Prosthetic Valves or Patients with recurrent Thromboembolic Events 2.0 - 3.0 For Most Other Applications PTT (test code=PTT) 40.3 s 20.2-38.0 PTTH (test code=PTTH) To monitor the effectiveness of heparin, we offer the Anti-Xa (Heparin Assay). It can be used for either unfractionated or LMW Heparin. Order Code is ANTI-XA GLUCOMETER GLUCOSE- LAB USE [id number] 12:08:00 Test Item Value Reference Range Comments GLUCOMETER (test code=GMG) 199 mg/dL 70-100 CLEANED METERMeter ID: [id number]: [id number] ALOK VEGAS XR CHEST 1 VIEW PORTABLE *WW*2019-06-20 08:09:06Portable AP chest, 1 viewLocation Code: [id number] HISTORY: PneumoniaCOMPARISON: NoneCOMMENT: There is prominence of the central pulmonary vasculature and interstitium.Patchy airspace disease is present within the lung bases. Small effusions aresuspected bilaterally. The heart is moderately enlarged. Sternotomy CABGchanges in left chest pacer noted. The bones are intact.IMPRESSION: Cardiomegaly with congestion and mild interstitial edema, mildbibasilar airspace disease, and small bilateral effusions.HEPATITIS B SURFACE ANTIGEN *WW*2019-06-20 07:38:00 Test Item Value Reference Range Comments HBSAG (test code=HBSAG) NON-REACTIVE NON-REACTIVE HEPATITIS B SURFACE ANTIBODY *WW*2019-06-20 07:21:00 Test Item Value Reference Range Comments HBSAB (test code=HBSAB) NON-REACTIVE REACTIVE PREALBUMIN *WW*2019-06-20 07:15:00 Test Item Value Reference Range Comments PREALBUMIN (test code=08E) 6 mg/dL 18-38 CBC WITH MANUAL DIFF *WW*2019-06-20 06:51:00 Test Item Value Reference Range Comments WBC (test code=WBC) 7.5 10\S\3/uL 4.5-11.0 RBC (test code=RBC) 4.18 10\S\6/uL 3.80-5.80 HGB (test code=HBG) 14.0 g/dL 14.0-18.0 HCT (test code=HCT) 43.9 % 35.0-46.0 MCV (test code=MCV) 105.0 fL 80.0-94.0 MCH (test code=MCH) 33.5 pg 27.0-31.0 MCHC (test code=MCHC) 31.9 g/dL 32.0-36.0 RDW (test code=RDW) 15.1 % 11.5-14.5 PLT (test code=PLT) 50 10\S\3/uL 130-400 MPV (test code=MPV) 12.5 fL 9.4-12.4 NEUTROP # (test code=NE#) 5.7 10\S\3/uL 2.0-8.0 LYMPH # (test code=LY#) 1.4 10\S\3/uL 1.2-4.0 MONOCYTE # (test code=MO#) 0.3 10\S\3/uL 0.0-1.1 EOSINOPH # (test code=EO#) 0.1 10\S\3/uL 0.0-0.7 BASOPHIL # (test code=BA#) 0.0 10\S\3/uL 0.0-0.3 IG # (test code=IG#) 0.04 10\S\3/uL 0.00-0.06 NRBC # (test code=NRBC#) 0.17 10\S\3/uL 0.00-0.01 NEUTROPH % (test code=NE%) 76.0 % 35.0-73.0 LYMPH % (test code=LY%) 18.1 % 20.0-55.0 MONO % (test code=MO%) 4.4 % 2.5-10.0 EOSINOPH % (test code=EO%) 0.7 % 0.0-5.0 BASOPHIL % (test code=BA%) 0.3 % 0.0-2.0 IG % (test code=IG%) 0.5 % 0.0-0.8 NRBC% (test code=NRBC%) 2.3 % 0.0-0.2 MAN DIFF (test code=HMDIFF) MANUAL DIFFERENTIAL SEG (test code=SEG) 86 % 42-75 BAND (test code=BAND) 1 % 0-8 LYMPH (test code=LYMPH) 11 % 20-51 MONO (test code=MONO) 1 % 3-11 EOS (test code=EOS) 0 % <=10 BASO (test code=BASO) 0 % 0-2 MYELO (test code=MYELO) 1 % <=1 RBC MORPH (test code=RBCMORN) ABNORMAL NORMAL PLT EST (test code=PLTEST) DECREASED ADEQUATE PLT MORPH (test code=PLTMOR) NORMAL (1.5-3 um) NORMAL ANISO (test code=ANISO) 1+ NONE MACRO (test code=MACRO) 1+ NONE TOXIC GRAN (test code=TOXG) 2+ NONE GLUCOMETER GLUCOSE- LAB USE [id number] 05:51:00 Test Item Value Reference Range Comments GLUCOMETER (test code=GMG) 114 mg/dL 70-100 Meter ID: [id number]: 2013 MIAH BAER T4 FREE *WW*2019-06-20 05:31:00 Test Item Value Reference Range Comments T4 FREE (test code=A91) 0.89 ng/dL 0.76-1.46 CARDIAC PROFILE 2019-06-20 05:15:00 Test Item Value Reference Range Comments TROPONIN I (test code=A84) 1.590 ng/mL 0.000-0.045 COMPREHENSIVE METABOLIC CEDENO 2019-06-20 05:14:00 Test Item Value Reference Range Comments GLUCOSE (test code=06D) 126 mg/dL 75-100 SODIUM (test code=01A) 135 mmol/L 136-145 POTASSIUM (test code=01B) 4.3 mmol/L 3.6-5.1 CHLORIDE (test code=04A) 94 mmol/L 98-107 CO2 (test code=02A) 32 mmol/L 22-32 ANION GAP (test code=ANG) 13.3 mmol/L BUN (test code=05D) 48 mg/dL 7-18 CREATININE (test code=03E) 7.0 mg/dL 0.7-1.3 BUN/CREA (test code=BCR) 7 12-20 CALCIUM (test code=09D) 7.8 mg/dL 8.3-9.5 BILI TOTAL (test code=11A) 1.6 mg/dL 0.2-1.0 PROTEIN (test code=07D) 7.6 g/dL 6.4-8.2 ALBUMIN (test code=08D) 3.1 g/dL 3.5-4.8 GLOBULIN (test code=GLB) 4.5 g/dL 1.5-3.8 ALB/GLOB (test code=AGRR) 0.7 1.0-2.6 ALK PHOS (test code=35A) 121 IU/L 42-121 AST (test code=30A) 966 IU/L <=42 ALT (test code=31A) 1301 IU/L <=78 MAGNESIUM 2019-06-20 05:14:00 Test Item Value Reference Range Comments MAGNESIUM (test code=48A) 2.0 mg/dL 1.8-2.4 PHOSPHORUS (P04) 2019-06-20 05:14:00 Test Item Value Reference Range Comments PHOSPHORUS (test code=43D) 7.3 mg/dL 2.7-4.6 THYROID PANEL/SCREEN (TSH) 2019-06-20 05:08:00 Test Item Value Reference Range Comments TSH (test code=WTSH) 7.100 uIU/mL 0.358-3.740 T4 FREE *WW*2019-06-20 05:04:00 Test Item Value Reference Range Comments T4 FREE (test code=A91) 0.89 ng/dL 0.76-1.46 LIPASE SERUM WW2019-06-20 04:52:00 Test Item Value Reference Range Comments LIPASE (test code=60A) 44 IU/L 73-393 DIRECT INFLUENZA A AND B [id number] 04:49:00 Test Item Value Reference Range Comments Direct Exam (test code=DE3) PRESUMPTIVE NEGATIVE FOR THE PRESENCE OF INFLUENZA ANTIGEN
[2019-09-02] MEDS ORDERED: NA CHLORIDE 0.9% 1,000 ML IV PRN (09:22)
[2019-09-02] MEDS ORDERED: MANNITOL 25% 12.5 GM/50 ML VIAL IV PRN (09:22)
[2019-09-02] MEDS ORDERED: ALPRAZOLAM 0.25 MG TABLET PO PRN (09:40)
[2019-09-02] MEDS ORDERED: ACETAMINOPHEN 500 MG TAB PO PRN (09:40)
[2019-09-02] MEDS: ALBUMIN HUMAN 25% 50 ML IV SCH ×2 (11:27→11:56)
[2019-09-02] MEDS: INSULIN -REGULAR HUMAN 50 UNIT/0.5 ML ML SQ SCH ×3 (11:30→21:00)
--- NOTE | 2019-09-02 11:35 | RAD REPORT ---
EXAM DESCRIPTION: Demetri Frazier And Concetta (2 Views)09/02/2019 10:22 am CLINICAL HISTORY: Shortness of breath COMPARISON: May 2019 FINDINGS: Nlwc-[id number] bilateral pulmonary opacities. Small left pleural effusion. The heart is mildly enlarged. Pacemaker leads are in place. Postsurgical changes involve the chest IMPRESSION: Mild to moderate CHF
--- NOTE | 2019-09-02 12:10 | P.HP ---
Certification for Inpatient Patient admitted to: Inpatient With expected LOS: >2 Midnights Patient will require the following post-hospital care: Home Health Services Practitioner: I am a practitioner with admitting privileges, knowledge of patient current condition, hospital course, and medical plan of care. Services: Services provided to patient in accordance with Admission requirements found in Title 42 Section 412.3 of the Code of Federal Regulations Patient History Date of Service: 09/03/19 Reason for admission: Dyspnea suspicious for acute CHF History of Present Illness: 84 yo WM DM, CKD admitted to the [facility] for 2-3 weeks of moderate, persistent dyspnea worse on exertion with associated weakness and hypervolemia in the setting of CHF. Persistent weakness since a hospital admission in the past few months with sepsis and PNA. We have been unable to adequately remove fluid at dialysis due to difficulties with hypotension. He reports abdominal distention in the setting of hypervolemia. Due to the failure of outpt therapy , it was decided to admit the patient for daily dialysis to facilitate fluid removal. Allergies No Known Allergies Allergy (Unverified 05/13/12 12:02) Home medications list reviewed: Yes Home Medications: Fluticasone/Umeclidin/Vilanter [Trelegy Ellipta 100-62.5-25] 1 each IH DAILY 09/17 Folic Acid 1 mg PO DAILY 09/02/19 Gabapentin 300 mg PO TID 09/02/19 Icosapent Ethyl [Vascepa 1 gm Cap] 2 cap PO BID 09/02/19 Insulin Detemir [Levemir Flextouch] 40 unit SQ DAILY 09/02/19 Levothyroxine [Synthroid] 100 mcg PO [id number] 09/02/19 Metoprolol Succinate 50 mg PO DAILY 09/02/19 Sevelamer Carbonate [Renvela] 1,600 mg PO TIDWM 09/02/19 - Past Medical/Surgical History Has patient received pneumonia vaccine in the past: Yes Diabetic: Yes -: Pacemaker -: PR -: HTN CHF -: Hypothyroid -: ESRD -: High cholesterol -: Pneumonia -: IDDM -: Arthritis -: Cardiac stents -: Arterial surgeries -: Bilateral fem POP - Family History Mother -: Heart disease, Diabetes Sister -: Hypertension, Diabetes, Cancer Brother -: Heart disease, Hypertension, Diabetes - Social History Smoking Status: Former smoker Alcohol use: No CD- Drugs: No Caffeine use: No Place of Residence: Home Review of Systems 10-point ROS is otherwise unremarkable General: Weakness, Malaise Respiratory: Shortness of Breath, SOB with Excertion Cardiovascular: Edema Gastrointestinal: Distention Neurological: Weakness Physical Examination - Vital Signs Temperature: 97.1 F Blood Pressure: 112/51 Pulse: 83 Respirations: 19 Pulse Ox (%): 92 - Physical Exam General: Oriented x3, Cooperative HEENT: Atraumatic Neck: Supple, No LAD, JVD distended Respiratory: Normal air movement, Crackles/rales Cardiovascular: Regular rate/rhythm, Edema Gastrointestinal: Normal bowel sounds, Soft and benign, Distended Musculoskeletal: No clubbing, No contractures Integumentary: No rashes, No cyanosis Neurological: Normal speech Assessment and Plan - Plan A/ ESRD on HD Diastolic CHF, A/C Anemia in CKD JOVITA/ Secondary HyperPTH CAD PAD Familial HLD Hypothyroidism. P/ Continue current POC and Medications. Admission orders placed. Restart home medications as indicated. Acute HD ordered. Plan for daily dialysis. Consult Cardiology for CHF. Echocardiogram ordered. Consult Pulmonary for persistent dyspnea. CXR ordered. Abdominal US ordered for distention and to evaluate for ascites. PT eval and tx. No NSAIDs. AM labs PRN. Daily weight. - Advance Directives Does patient have a Living Will: No Does patient have a Durable POA for Healthcare: No
[2019-09-02] MEDS ORDERED: MIDODRINE HCL 5 MG TABLET PO SCH (13:00)
[2019-09-02] MEDS: EPOETIN ALFA-EPBX 10,000 UNIT/ML VIAL SQ SCH (16:43)
[2019-09-02] MEDS: SEVELAMER CARBONATE 800 MG TABLET PO SCH (16:45)
[2019-09-02] MEDS: DOCUSATE NA 100 MG CAP PO SCH (21:26)
[2019-09-02] MEDS: GABAPENTIN 300 MG CAP PO SCH (21:26)
[2019-09-03] MEDS: METOPROLOL XL 25 MG TAB PO SCH (05:43)
[2019-09-03] MEDS: LEVOTHYROXINE SOD 0.1 MG TAB PO SCH (05:43)
[2019-09-03 06:27] LABS: Absolute Lymphocytes (CBC) 1.3 K/uL (0.7-4.9); Basophils % 0.3 % (0-1.3); Hematocrit 37.5 % (39.6-49.0); Lymphocytes % 26.8 % (15.3-44.8); MPV 10.9 fL (7.6-11.3)
[2019-09-03 06:42] LABS: Albumin 3.2 g/dL (3.4-5.0); Bilirubin Total 0.9 mg/dL (0.2-1.0); Magnesium 1.9 mg/dL (1.8-2.4); Phosphorus 3.7 mg/dL (2.5-4.9); Potassium 3.8 mmol/L (3.5-5.1); Protein, Total 7.9 g/dL (6.4-8.2); Uric Acid 2.9 mg/dL (3.5-7.2)
[2019-09-03] MEDS: INSULIN -REGULAR HUMAN 50 UNIT/0.5 ML ML SQ SCH ×4 (07:30→21:40)
[2019-09-03] MEDS: DOCUSATE NA 100 MG CAP PO SCH ×2 (08:29→20:18)
[2019-09-03] MEDS: VITAMIN D 5,000 UNIT CAP PO SCH (08:29)
[2019-09-03] MEDS: GABAPENTIN 300 MG CAP PO SCH ×3 (08:29→20:18)
[2019-09-03] MEDS: SEVELAMER CARBONATE 800 MG TABLET PO SCH ×3 (08:29→16:40)
[2019-09-03] MEDS: CALCITROL 0.25 MCG CAP PO SCH (08:30)
[2019-09-03] MEDS: MULTIVITAMINS,THERAPEUT 1 TAB PO SCH (08:30)
[2019-09-03] MEDS: INSULIN GLARGINE 100 UNITS/ML SQ SCH (08:30)
[2019-09-03] MEDS: HOME MED 1 EA UNK (Fluticasone/Umeclidin/Vilanter [Trelegy Ellipta 100-62.5-25] 1 EACH) IH SCH (09:00)
--- NOTE | 2019-09-03 09:15 | CON ---
Date of Consultation: 09/03/2019 Patient was admitted to Dr. Beyer's service on 09/03/2019. I saw the patient on 09/03/2019. Reason For Consultation: Dyspnea on exertion, congestive heart failure, and end-stage renal disease. History Of Present Illness: Mr. Castellano is an 84-year-old white male. He is very well known to me from office visits and hospital admissions. He has a very extensive past medical history. Apparently, adriane engle has been dyspneic and retaining fluid for a few weeks despite dialysis. He was admitted by Dr. Tamia sam for possible daily dialysis. Echocardiogram has been ordered. Patient denied any chest pain, n ausea, vomiting, diaphoresis. He has orthopnea, pedal edema. He denied any palpitation and denied a ny syncope. He denied any fever, chills, or cough. He was recently in the hospital for sepsis, micheal gatica. Past Medical History: 1.Coronary artery disease, status post CAB[place] [address] Naga Bryant. He is status post MILNER to the LAD. 2.Status post pacemaker placement for sick sinus syndrome. 3.Chronic diastolic congestive heart failure with possible acute exacerbation. 4.End-stage renal disease, on hemodialysis. 5.Peripheral arterial disease. He is status post fem-fem bypass. 6.Cerebrovascular disease, status post right CEA in 2013. 7.Recent pneumonia and sepsis. 8.COPD. 9.Mixed hyperlipidemia. 10.Neuropathy. 11.Diabetes. 12.Hypertension. 13.Hypothyroidism. Allergies: NONE. Review of Systems: Negative. Social History: Negative. Family History: Negative. Medications: At home include inhalers, Vascepa, Neurontin, insulin, Synthroid, and metoprolol. Physical Examination: General: Mr. Castellano was lying in bed without any specific complaint. He did not appear to be in any a cute distress. Vital Signs: Stable. He was afebrile. He was in a paced rhythm. HEENT: Negative. Neck: Supple without any lymphadenopathy or thyromegaly, but he had some JVD for about 3 cm below th e angle of the jaw. Chest: Revealed some rales at both bases. Cardiac: Revealed a paced rhythm. No murmurs, gallops, or rubs. Abdomen: Obese, but benign. Extremities: Revealed 1+ edema. Skin: Moist. Pulses: Decreased bilaterally in the dorsalis pedis and posterior tibial. Neurologic: Appeared to be nonfocal. Diagnostic Data: Chest x-ray showed congestive heart failure. Abdominal CT is pending to rule out a scites. EKG showed paced rhythm. Last echocardiogram in 2018 in my office showed left ventricular h ypertrophy with decreased left ventricular compliance. Impression And Plan: 1.End-stage renal disease, on hemodialysis with volume overload, congestive heart failure by x-ray, possible ascites on abdominal exam. Patient will get dialyzed daily. Dr. Beyer is handling that p art. 2.Possible [id number]-uy-entruvq diastolic congestive heart failure. 3.Coronary artery disease, status post CABG in 2016. That seems to be stable. I do not think we ar e dealing with any acute coronary syndrome. 4.Status post pacemaker placement. 5.Status post right internal carotid artery endarterectomy. 6.Status post fem-fem bypass. 7.Recent pneumonia and sepsis. 8.Mixed hyperlipidemia. 9.Chronic obstructive pulmonary disease. 10.Neuropathy. 11.Diabetes. 12.Hypertension. 13.Hypothyroidism. I agree with his present regimen. We will see how he does with dialysis. Echocardiogram is pending. We will continue to follow. JAMAAL/GILLIAN Voice ID: [id number] Report ID: [id number]
[2019-09-03 10:22] LABS: Platelet Estimate DECR
[2019-09-03 10:23] LABS: Anisocytosis 1+; Blood Morphology Comment NOTED (NOT SEEN); Platelets, Giant PRESENT
--- NOTE | 2019-09-03 10:45 | P.PN ---
Date of Service: 09/03/19 Vital Signs Temp Pulse Resp BP Pulse Ox 97.1 F 83 19 112/51 L 92 09/03/19 10:37 09/03/19 10:37 09/03/19 10:37 09/03/19 10:37 09/03/19 10:37 Medications Acetaminophen (Tylenol -Extra Strength) 500 mg PO Q4HP PRN PRN Reason: Pain scale 2-4 (Mild) Stop: 10/02/19 09:41 Alprazolam (Xanax) 0.25 mg PO BEDTIME PRN PRN PRN Reason: INSOMNIA Stop: 10/02/19 09:41 Last Admin: 09/02/19 21:26 Dose: 0.25 mg Calcitriol (Rocaltrol) 0.5 mcg PO DAILY [facility] Stop: 10/03/19 09:01 Last Admin: 09/03/19 08:30 Dose: 0.5 mcg Cholecalciferol (Vitamin D 5,000 Iu Cap) 5,000 unit PO DAILY [facility] Stop: 10/03/19 09:01 Last Admin: 09/03/19 08:29 Dose: 5,000 unit Docusate Sodium (Colace Cap) 100 mg PO BID [facility] Stop: 10/02/19 21:01 Last Admin: 09/03/19 08:29 Dose: 100 mg Gabapentin (Neurontin) 300 mg PO TID [facility] Stop: 10/02/19 21:01 Last Admin: 09/03/19 08:29 Dose: 300 mg Heparin Sodium (Porcine) (Heparin 1,000 Units/Ml) 3,000 unit IV EVERY HD [facility] Stop: 09/07/19 12:01 Home Med (Fluticasone/Umeclidin/Vilanter [Trelegy Ellipta 100-62.5-25]) 1 each IH DAILY [facility] Stop: 10/03/19 09:01 Albumin Human (Albumin 25%) 50 mls @ 100 mls/hr IV EVERY HD [facility] Stop: 10/02/19 10:01 Last Admin: 09/02/19 11:56 Dose: 50 mls Insulin Glargine (Lantus) 40 units SQ DAILY [facility] Stop: 10/03/19 09:01 Last Admin: 09/03/19 08:30 Dose: 40 units Insulin Human Regular (Novolin -R) 0 unit SQ ACHS [facility]; Protocol Stop: 10/02/19 11:31 Last Admin: 09/03/19 07:30 Dose: Not Given Levothyroxine Sodium (Synthroid) 0.1 mg PO [id number] [facility] Stop: 10/03/19 06:01 Last Admin: 09/03/19 05:43 Dose: 0.1 mg Mannitol (Mannitol 12.5 Gm/50 Ml Vial) 12.5 gm IV EVERY HD PRN PRN Reason: Titrate to SBP > 160 Stop: 10/02/19 09:23 Metoprolol Succinate (Toprol Xl) 25 mg PO [id number] [facility] Stop: 10/03/19 06:01 Last Admin: 09/03/19 05:43 Dose: 25 mg Midodrine (Proamatine) 10 mg PO EVERY HD [facility] Stop: 10/02/19 13:01 Sevelamer Carbonate (Renvela) 800 mg PO TIDWM [facility] Stop: 10/02/19 17:01 Last Admin: 09/03/19 08:29 Dose: 800 mg Sodium Chloride (Normal Saline Flush) 10 ml IV BID [facility] Stop: 10/02/19 21:01 Last Admin: 09/03/19 08:36 Dose: 10 ml Vitamin B Complex/Vit C/Folic Acid (Nephro-Trini) 1 tab PO DAILY [facility] Stop: 10/03/19 09:01 Last Admin: 09/03/19 08:30 Dose: 1 tab Lab Results (last 24 hrs) 09/03/19 07:38: POC Glucose 130 H 09/03/19 05:36: Sodium 137, Potassium 3.8, Chloride 102, Carbon Dioxide 31, BUN 26 H, Creatinine 4.33 H, Estimated GFR 13 L, Glucose 140 H, Uric Acid 2.9 L, Calcium 8.2 L, Phosphorus 3.7, Magnesium 1.9, Total Bilirubin 0.9, AST 25, ALT 19, Alkaline Phosphatase 79, NT-Pro-B Natriuret Pep 11049 H, Serum Total Protein 7.9, Albumin 3.2 L, Globulin 4.7 H, Albumin/Globulin Ratio 0.7 L 09/03/19 05:36: WBC 4.8, RBC 3.50 L, Hgb 11.7 L, Hct 37.5 L, MCV 107.1 H D, MCH 33.5 D, MCHC 31.3 L, RDW 16.5 H, Plt Count 65 L, MPV 10.9, Neutrophils % 61.3, Lymphocytes % 26.8, Monocytes % 10.0, Eosinophils % 1.6, Basophils % 0.3, Absolute Neutrophils 3.0, Segmented Neutrophils 66, Absolute Lymphocytes 1.3, Lymphocytes 20, Monocytes 8, Absolute Monocytes 0.5, Eosinophils 1, Absolute Eosinophils 0.1, Basophils 1, Absolute Basophils 0.0, Reactive Lymphocytes 4, Giant Platelets Present, Anisocytosis 1+, Morphology Comment Noted 09/02/19 19:38: POC Glucose 184 H 09/02/19 15:43: POC Glucose 171 H 09/02/19 12:49: POC Glucose 95 Assessment/ Plan: Nephrology Feeling better today but still weak. +RIVERA Persistent edema. Walked with PT today. CPS stable without CP. No acute events overnight. Vitals, medications, blood work and imaging reviewed in the chart. General: Oriented x3, Cooperative HEENT: Atraumatic Neck: Supple, No LAD, JVD distended Respiratory: Normal air movement, Crackles/rales Cardiovascular: Regular rate/rhythm, Edema Gastrointestinal: Normal bowel sounds, Soft and benign, Distended Musculoskeletal: No clubbing, No contractures Integumentary: No rashes, No cyanosis Neurological: Normal speech EXAM DESCRIPTION: Demetri Frazier And Concetta (2 Views)09/02/2019 10:22 am CLINICAL HISTORY: Shortness of breath COMPARISON: May 2019 FINDINGS: [id number] bilateral pulmonary opacities. Small left pleural effusion. The heart is mildly enlarged. Pacemaker leads are in place. Postsurgical changes involve the chest IMPRESSION: Mild to moderate CHF Assessment and Plan A/ ESRD on HD Diastolic CHF, A/C Anemia in CKD JOVITA/ Secondary HyperPTH CAD PAD Familial HLD Hypothyroidism. P/ Continue current POC and Medications. Acute HD ordered for today. Plan for daily dialysis. Appreciate cardiology input. Echocardiogram ordered. Pulmonary consult pending for persistent dyspnea. Abdominal US ordered for distention and to evaluate for ascites. PT eval and tx. No NSAIDs. AM labs PRN. Daily weight.
--- NOTE | 2019-09-03 11:31 | RAD REPORT ---
EXAM DESCRIPTION: US - Abdomen Exam Complete - 09/03/2019 4:41 am CLINICAL HISTORY: Abdominal pain. Abdominal distention. Evaluate ascites? COMPARISON: RP EXAM COMPLETE dated 06/05/2012 FINDINGS: Echogenic liver parenchyma noted suggesting mild fatty liver. No focal liver lesions or in trahepatic biliary dilatation is seen. No gallstones are seen. Gallbladder wall is thickened to 11 mm. Common bile duct is normal in calibe r measuring 4 mm. Bilateral benign appearing renal cysts are present. Echogenic right kidney seen suggesting underlying medical renal disease. No hydronephrosis. The spleen is enlarged measuring 15 cm. The pancreas and aorta are obscured by bowel gas. The visualized aspects of the IVC are grossly normal. Mild ascites. IMPRESSION: Mild ascites. Splenomegaly. Thickened gallbladder wall of the without evidence of gallstone. Echogenic right kidney likely indicating underlying medical renal disease.
[2019-09-03] MEDS: EPOETIN ALFA-EPBX 10,000 UNIT/ML VIAL SQ SCH (16:41)
[2019-09-04] MEDS: LEVOTHYROXINE SOD 0.1 MG TAB PO SCH (05:32)
[2019-09-04] MEDS: METOPROLOL XL 25 MG TAB PO SCH (05:32)
[2019-09-04 06:59] LABS: ALT/SGPT 17 U/L (12-78); AST/SGOT 23 U/L (15-37); Albumin 3.3 g/dL (3.4-5.0); Alkaline Phosphatase 92 U/L (45-117); BUN Blood Urea Nitrogen 25 mg/dL (7-18); Bicarbonate 30 mmol/L (21-32); Bilirubin Total 0.9 mg/dL (0.2-1.0); Folic Acid, (Folate) 17.4 ng/mL (3.1-17.5); Glucose Level 82 mg/dL (74-106); NT PRO-BNP 69719 pg/mL (<450); Potassium 4.8 mmol/L (3.5-5.1); Protein, Total 8.2 g/dL (6.4-8.2); Sodium Level 136 mmol/L (136-145)
[2019-09-04] MEDS: INSULIN -REGULAR HUMAN 50 UNIT/0.5 ML ML SQ SCH ×4 (07:30→21:00)
[2019-09-04] MEDS: GABAPENTIN 300 MG CAP PO SCH ×3 (08:51→23:02)
[2019-09-04] MEDS: CALCITROL 0.25 MCG CAP PO SCH (08:51)
[2019-09-04] MEDS: MULTIVITAMINS,THERAPEUT 1 TAB PO SCH (08:51)
[2019-09-04] MEDS: VITAMIN D 5,000 UNIT CAP PO SCH (08:51)
[2019-09-04] MEDS: SEVELAMER CARBONATE 800 MG TABLET PO SCH ×3 (08:51→16:47)
[2019-09-04] MEDS: INSULIN GLARGINE 100 UNITS/ML SQ SCH (08:51)
[2019-09-04] MEDS: DOCUSATE NA 100 MG CAP PO SCH ×2 (08:51→23:01)
[2019-09-04] MEDS: HOME MED 1 EA UNK (Fluticasone/Umeclidin/Vilanter [Trelegy Ellipta 100-62.5-25] 1 EACH) IH SCH (09:00)
--- NOTE | 2019-09-04 11:41 | P.CNS ---
Date of Consult: 09/04/19 Reason for Consult: Shortness of breath Chief Complaint: Dyspnea suspicious for acute CHF History of Present Illness: Patient is 84 years of age admitted with dyspnea he has poor historian is never smoked history of chronic renal failure on dialysis denies any fever chills or cough patient is requiring considerable amount of oxygen and 5 L with 91% sat no fever since admission chest x-ray shows diffuse interstitial lung disease no clinical evidence of sepsis patient has respiratory failure Allergies No Known Allergies Allergy (Unverified 05/13/12 12:02) Home Medications: Fluticasone/Umeclidin/Vilanter [Trelegy Ellipta 100-62.5-25] 1 each IH DAILY 09/02/19 Folic Acid 1 mg PO DAILY 09/02/19 Gabapentin 300 mg PO TID 09/02/19 Icosapent Ethyl [Vascepa 1 gm Cap] 2 cap PO BID 09/02/19 Insulin Detemir [Levemir Flextouch] 40 unit SQ DAILY 09/02/19 Levothyroxine [Synthroid] 100 mcg PO [id number] 09/02/19 Metoprolol Succinate 50 mg PO DAILY 09/02/19 Sevelamer Carbonate [Renvela] 1,600 mg PO TIDWM 09/02/19 - Past Medical/Surgical History Diabetic: Yes -: Pacemaker -: ID -: HTN CHF -: Hypothyroid -: ESRD -: High cholesterol -: Pneumonia -: IDDM -: Arthritis -: Cardiac stents -: Arterial surgeries -: Bilateral fem POP - Family History Mother Medical History: Heart disease, Diabetes Sister Medical History: Hypertension, Diabetes, Cancer Brother Medical History: Heart disease, Hypertension, Diabetes - Social History Smoking Status: Former smoker Alcohol use: No CD- Drugs: No Caffeine use: No Place of Residence: Home Review of Systems General: Weakness Respiratory: Shortness of Breath Cardiovascular: Edema Physical Examination Temp Pulse Resp BP Pulse Ox 98.9 F 81 19 121/52 L 90 L 09/04/19 08:00 09/04/19 08:00 09/04/19 08:00 09/04/19 08:00 09/04/19 08:00 General: Alert, Moderate distress Respiratory: Clear to auscultation bilaterally, Diminished Cardiovascular: Regular rate/rhythm, Edema Laboratory Data (last 24 hrs) 09/04/19 05:42: Sodium 136, Potassium 4.8, BUN 25 H, Creatinine 4.37 H, Glucose 82, Total Bilirubin 0.9, AST 23, ALT 17, Alkaline Phosphatase 92 - Problems (1) Respiratory failure Current Visit: Yes Status: Acute Plan: Patient is 84 years of age admitted with shortness of breath he presumably has diastolic dysfunction patient hypoxic hypercarbic I suspect is acute on chronic as is bicarbonate is elevated patient transferred to the ICU is also hypotensive start on broad-spectrum antibiotics blood cultures patient started on BiPAP Qualifiers: Chronicity: acute on chronic
[2019-09-04] MEDS: ARFORMOTEROL TARTRATE 15 MCG/2 ML VIAL.NEB NEB SCH ×2 (11:45→20:00)
[2019-09-04 11:58] LABS: HBsAG Nonreactive (Nonreactive)
--- NOTE | 2019-09-04 13:28 | P.PN ---
Date of Service: 09/04/19 Vital Signs Temp Pulse Resp BP Pulse Ox 98.9 F 81 19 121/52 L 90 L 09/04/19 08:00 09/04/19 08:00 09/04/19 08:00 09/04/19 08:00 09/04/19 08:00 Medications Acetaminophen (Tylenol -Extra Strength) 500 mg PO Q4HP PRN PRN Reason: Pain scale 2-4 (Mild) Stop: 10/02/19 09:41 Alprazolam (Xanax) 0.25 mg PO BEDTIME PRN PRN PRN Reason: INSOMNIA Stop: 10/02/19 09:41 Last Admin: 09/02/19 21:26 Dose: 0.25 mg Arformoterol Tartrate (Brovana) 15 mcg NEB BIDRESP [place] Stop: 10/04/19 11:37 Calcitriol (Rocaltrol) 0.5 mcg PO DAILY [place] Stop: 10/03/19 09:01 Last Admin: 09/04/19 08:51 Dose: 0.5 mcg Cholecalciferol (Vitamin D 5,000 Iu Cap) 5,000 unit PO DAILY [place] Stop: 10/03/19 09:01 Last Admin: 09/04/19 08:51 Dose: 5,000 unit Docusate Sodium (Colace Cap) 100 mg PO BID [place] Stop: 10/02/19 21:01 Last Admin: 09/04/19 08:51 Dose: 100 mg Gabapentin (Neurontin) 300 mg PO TID [place] Stop: 10/02/19 21:01 Last Admin: 09/04/19 08:51 Dose: 300 mg Heparin Sodium (Porcine) (Heparin 1,000 Units/Ml) 3,000 unit IV EVERY HD [facility] Stop: 09/07/19 12:01 Home Med (Fluticasone/Umeclidin/Vilanter [Trelegy Ellipta 100-62.5-25]) 1 each IH DAILY [facility] Stop: 10/03/19 09:01 Last Admin: 09/04/19 09:00 Dose: Not Given Albumin Human (Albumin 25%) 50 mls @ 100 mls/hr IV EVERY HD [facility] Stop: 10/02/19 10:01 Last Admin: 09/02/19 11:56 Dose: 50 mls Insulin Glargine (Lantus) 40 units SQ DAILY [place] Stop: 10/03/19 09:01 Last Admin: 09/04/19 08:51 Dose: 40 units Insulin Human Regular (Novolin -R) 0 unit SQ [facility]; Protocol Stop: 10/02/19 11:31 Last Admin: 09/04/19 12:16 Dose: 5 unit Levothyroxine Sodium (Synthroid) 0.1 mg PO [id number] [facility] Stop: 10/03/19 06:01 Last Admin: 09/04/19 05:32 Dose: 0.1 mg Mannitol (Mannitol 12.5 Gm/50 Ml Vial) 12.5 gm IV EVERY HD PRN PRN Reason: Titrate to SBP > 160 Stop: 10/02/19 09:23 Metoprolol Succinate (Toprol Xl) 25 mg PO [id number] [facility] Stop: 10/03/19 06:01 Last Admin: 09/04/19 05:32 Dose: 25 mg Midodrine (Proamatine) 10 mg PO EVERY HD [facility] Stop: 10/02/19 13:01 Sevelamer Carbonate (Renvela) 800 mg PO TIDWM [facility] Stop: 10/02/19 17:01 Last Admin: 09/04/19 12:16 Dose: 800 mg Sodium Chloride (Normal Saline Flush) 10 ml IV BID [facility] Stop: 10/02/19 21:01 Last Admin: 09/04/19 08:52 Dose: Not Given Vitamin B Complex/Vit C/Folic Acid (Nephro-Trini) 1 tab PO DAILY [facility] Stop: 10/03/19 09:01 Last Admin: 09/04/19 08:51 Dose: 1 tab Lab Results (last 24 hrs) 09/04/19 11:33: POC Glucose 215 H 09/04/19 07:43: POC Glucose 72 09/04/19 05:42: Sodium 136, Potassium 4.8, Chloride 104, Carbon Dioxide 30, BUN 25 H, Creatinine 4.37 H, Estimated GFR 13 L, Glucose 82, Calcium 8.6, Total Bilirubin 0.9, AST 23, ALT 17, Alkaline Phosphatase 92, NT-Pro-B Natriuret Pep 83590 H, Serum Total Protein 8.2, Albumin 3.3 L, Globulin 4.9 H, Albumin/ Globulin Ratio 0.7 L, Vitamin B12 > 2000 H, Serum Folate 17.4 09/03/19 20:16: POC Glucose 152 H 09/03/19 16:53: POC Glucose 138 H 09/03/19 16:39: POC Glucose 155 H 09/02/19 12:20: Hep Bs Antigen Nonreactive, Hep Bs Antibody, Quant 47 Assessment/ Plan: Nephrology Feeling better today but still weak. +RIVERA Persistent edema. Walked with PT today. CPS stable without CP. No acute events overnight. Vitals, medications, blood work and imaging reviewed in the chart. General: Oriented x3, Cooperative HEENT: Atraumatic Neck: Supple, No LAD, JVD distended Respiratory: Normal air movement, Crackles/rales Cardiovascular: Regular rate/rhythm, Edema Gastrointestinal: Normal bowel sounds, Soft and benign, Distended Musculoskeletal: No clubbing, No contractures Integumentary: No rashes, No cyanosis Neurological: Normal speech EXAM DESCRIPTION: Demetri Frazier And Lat (2 Views)09/02/2019 10:22 am CLINICAL HISTORY: Shortness of breath COMPARISON: May 2019 FINDINGS: [id number] bilateral pulmonary opacities. Small left pleural effusion. The heart is mildly enlarged. Pacemaker leads are in place. Postsurgical changes involve the chest IMPRESSION: Mild to moderate CHF Assessment and Plan A/ ESRD on HD Diastolic CHF, A/C Anemia in CKD JOVITA/ Secondary HyperPTH CAD PAD Familial HLD Steatohepatitis. Hypothyroidism. P/ Continue current POC and Medications. Acute HD ordered for today. Plan for daily dialysis. Echocardiogram ordered. Pulmonary consult pending for persistent dyspnea. PT as tolerated. Low sodium diet. Fluid restriction. No NSAIDs. AM labs PRN. Daily weight. Case discussed with Dr. Monique and Dr. Vargas. Possible discharge Wednesday post dialysis. Addendum: The patient's condition worsened in the early with AMS, hypotension and hypoxia/ hypercapnea. He was started on Bipap with an improvement in his condition. The case was reviewed with Dr. Vargas. Later in the evening, the patient's condition worsened again with AMS and hypotension. He was transferred to the ICU and started on a Levophed gtt. Albumin 50g IV given X1. Morning labs and CXR was ordered. Greater than 30 min patient care. Acute hypoxic hypercapnic respiratory failure. Toxic metabolic encephalopathy.
[2019-09-04 14:36] LABS: Arterial Blood Carboxyhemoglob 1.7 % (0-1.5); Blood Gas Oxyhemoglobin 74.2 % (94-97); Blood O2 Saturation 76.7 % (92-98.5)
--- NOTE | 2019-09-04 14:37 | RAD REPORT ---
EXAM DESCRIPTION: RAD - Chest Single View - 09/04/2019 2:11 pm CLINICAL HISTORY: Acute hypoxia COMPARISON: Two view chest [id number] TECHNIQUE: AP portable chest image was obtained 09/04/2019 2:11 pm . FINDINGS: Lung volumes are very low. Vasculature and lung markings are prominent. Bilateral pleural effusions are present. Cardiomegaly present. Pacemaker is in place. Sternotomy wires are in place. No pneumothorax. No acute bony abnormality seen. No acute aortic findings suspected. IMPRESSION: Moderate severity CHF/ volume overload. Comparison to September 01 is difficult due to the very shallow inspiration on the current study. Signific ant differential change is doubtful.
[2019-09-04] MEDS: EPOETIN ALFA-EPBX 10,000 UNIT/ML VIAL SQ SCH (15:00)
--- NOTE | 2019-09-04 18:26 | PN ---
Date of Progress Note: 09/04/2019 Mr. Castellano has been getting daily dialysis, but has been having hypotension with it. The case was disc ussed today with Dr. Beyer. Patient's creatinine is 4.37. He remains in a paced rhythm. His BNP is 69,719 secondary to the combination of congestive heart failure as well as renal failure. Echocar diogram is still pending. Patient remains on insulin, metoprolol, and Synthroid. His other problems include CAD, status post CABG; right carotid endarterectomy; and fem-fem bypass in the past. I stil l think we are having a combination of renal failure and acute on chronic diastolic congestive heart failure. We could certainly hold his beta-blockers considering his blood pressure issues. I will co samantha to follow him along with Dr. Beyer. JAMAAL/GILLIAN Voice ID: [id number] Report ID: [id number]
[2019-09-04] MEDS ORDERED: NOREPINEPHRINE 4 MG/4 ML VIAL ONE (21:09)
[2019-09-04] MEDS ORDERED: D5W 250 ML IV ONE (21:10)
[2019-09-04] MEDS ORDERED: ALBUMIN HUMAN 25% 200 ML IV ONE (21:41)
[2019-09-04] MEDS ORDERED: CEFTRIAXONE 1 GM/NS 50 ML 1 GM/50 ML BAG IV ONE (22:40)
[2019-09-04 22:41] LABS: CKMB Creatine Kinase MB 1.6 ng/mL (0.3-3.6); Creatine Phosphokinase 21 U/L (39-308); Troponin I < 0.02 ng/mL (0.0-0.045)
[2019-09-04] MEDS ORDERED: VANCOMYCIN/NS 1 gm 1 GM/250 ML BAG IVPB ONE (22:47)
[2019-09-04] MEDS ORDERED: CEFTRIAXONE/SWI 1gm 1 GM/10 ML SYR IV SCH (23:00)
[2019-09-04 23:18] LABS: Blood Gas Oxyhemoglobin 89.9 % (94-97); Blood O2 Saturation 90.3 % (92-98.5)
[2019-09-04] MEDS ORDERED: VANCOMYCIN 1 GM/VIAL ONE (23:53)
[2019-09-04] MEDS ORDERED: NA CHLORIDE 0.9% 250 ML ONE (23:54)
[2019-09-05 01:05] VITALS: BMI 30.5
[2019-09-05] MEDS ORDERED: NOREPINEPHRINE 4mg/D5W 250mL 4 MG/250 ML BAG IV ONE ×2 (02:34→06:20)
[2019-09-05] MEDS: NOREPINEPHRINE 4 MG in D5W 250 ML IV PRN ×2 (02:51→10:55)
[2019-09-05] MEDS: METOPROLOL XL 25 MG TAB PO SCH (06:00)
[2019-09-05] MEDS: LEVOTHYROXINE SOD 0.1 MG TAB PO SCH (06:00)
[2019-09-05] MEDS: INSULIN -REGULAR HUMAN 50 UNIT/0.5 ML ML SQ SCH ×4 (07:30→22:12)
[2019-09-05 08:13] LABS: Albumin 3.8 g/dL (3.4-5.0); Bilirubin Total 1.1 mg/dL (0.2-1.0); C-Reactive Protein 11.9 mg/L (<3.00); Magnesium 1.9 mg/dL (1.8-2.4); Phosphorus 5.6 mg/dL (2.5-4.9); Potassium 4.7 mmol/L (3.5-5.1); Protein, Total 8.2 g/dL (6.4-8.2); Uric Acid 3.5 mg/dL (3.5-7.2)
--- NOTE | 2019-09-05 08:19 | RAD REPORT ---
EXAM DESCRIPTION: RAD - Chest Single View - 09/05/2019 8:05 am CLINICAL HISTORY: Acute on chronic respiratory failure. CHF. COMPARISON: Portable September 03, two view chest September 01 TECHNIQUE: AP portable chest image was obtained 09/05/2019 8:05 am . FINDINGS: Lung volumes are again noted to be very low. Bilateral lung base alveolar opacification pr esent. Bilateral pleural effusions are present possibly improved slightly on the right. Vascular engo rgement and interstitial opacities are present throughout the lung bloom. Cardiomegaly is present va scular engorgement. No pneumothorax. No acute bony abnormality seen. No acute aortic findings suspect ed. IMPRESSION: Moderate severity CHF/volume overload showing no improvement from prior day imaging.
[2019-09-05 08:34] LABS: Absolute Lymphocytes (CBC) 2.5 K/uL (0.7-4.9); Basophils % 0.4 % (0-1.3); Hematocrit 40.6 % (39.6-49.0); Lymphocytes % 31.6 % (15.3-44.8); MPV 11.6 fL (7.6-11.3); RBC Red Blood Cell Count 3.79 M/uL (4.33-5.43)
--- NOTE | 2019-09-05 09:05 | ECHO ---
HEIGHT: 5 ft 10 in WEIGHT: 213 lb 0 oz DATE OF STUDY: 09/04/[address]: Rafa Beyer DO 2-DIMENSIONAL: YES M.MODE: YES DOPPLER: YES COLOR FLOW: YES TDS: PORTABLE: DEFINITY: BUBBLE STUDY: DIAGNOSIS: CONGESTIVE HEART FAILURE CARDIAC HISTORY: CATHERIZATION: YES SURGERY: YES PROSTHETIC VALVE: NO PACEMAKER: YES MEASUREMENTS (cm) DIASTOLIC (NORMALS) SYSTOLIC (NORMALS) IVSd 1.3 (0.6-1.2) LA Diam 5.4 (1.9-4.0) LVEF 54% LVIDd 4.5 (3.5-5.7) LVIDs 3.2 (2.0-3.5) %FS 28% LVPWd 1.2 (0.6-1.2) Ao Diam 3.0 (2.0-3.7) 2 DIMENSIONAL ASSESSMENT: RIGHT ATRIUM: DILATED LEFT ATRIUM: DILATED RIGHT VENTRICLE: DILATED LEFT VENTRICLE: NORMAL TRICUSPID VALVE: NORMAL MITRAL VALVE: MITRAL ANNULAR CALCIFICATION PULMONIC VALVE: NORMAL AORTIC VALVE: SCLROSIS PERICARDIAL EFFUSION: NONE AORTIC ROOT: NORMAL LEFT VENTRICULAR WALL MOTION: NORMAL DOPPLER/COLOR FLOW: MILD TRICUPID REGURGITATION. MODERATE PULMONARY HYPERTENSION. RIGHT VENTRICULAR SYSTOLIC PRESSURE 47 mmHg. COMMENTS: MODERATE PULMONARY HYPERTENSION - RIGHT VENTRICULAR SYSTOLIC PRESSURE 47 mmHg. MILD TRICUSPID REGURGITATION. NORMAL EJECTION FRACTION. MITRAL ANNULAR CALCIFICATION. AORTIC SCLEROSIS, NO STENOSIS. TECHNOLOGIST: JOSE M RUIZ
[2019-09-05] MEDS: ARFORMOTEROL TARTRATE 15 MCG/2 ML VIAL.NEB NEB SCH ×2 (09:25→20:10)
[2019-09-05] MEDS: GABAPENTIN 300 MG CAP PO SCH ×3 (09:34→22:12)
[2019-09-05] MEDS: DOCUSATE NA 100 MG CAP PO SCH ×2 (09:34→22:11)
[2019-09-05] MEDS: SEVELAMER CARBONATE 800 MG TABLET PO SCH ×3 (09:34→17:28)
[2019-09-05] MEDS: INSULIN GLARGINE 100 UNITS/ML SQ SCH (09:34)
[2019-09-05] MEDS: VITAMIN D 5,000 UNIT CAP PO SCH (09:34)
--- NOTE | 2019-09-05 11:45 | PN ---
Mr. Castellano is rather very complex patient with history of PAD, end-stage renal disease, on hemodialysis , congestive heart failure, status post CABG. He has a history of diabetes and COPD. He was admitte d for volume overload and has been getting daily dialysis. Yesterday, the dialysis was held because of hypotension and hypoxia. He was moved to the ICU. This morning, he is on Levophed with blood pre ssure 112/60, O2 saturation is adequate on BiPAP. He did receive some albumin. He is in a paced rhy thm. Beta blockers have been held. He is being weaned off the Levophed. Hopefully, he will get ano ther session of hemodialysis today if his blood pressure tolerates it. Echocardiogram that was done yesterday showed a normal ejection fraction with moderate pulmonary hypertension. I agree with his p resent regimen. I will discuss the case further with Dr. Beyer. Consider pulmonary consultation. JAMAAL/GILLIAN Voice ID: [id number] Report ID: [id number]
[2019-09-05 11:55] LABS: Arterial Blood Carboxyhemoglob 1.6 % (0-1.5); Blood Gas Oxyhemoglobin 87.2 % (94-97); Blood O2 Saturation 90.2 % (92-98.5)
--- NOTE | 2019-09-05 12:18 | P.PN ---
Subjective Date of Service: 09/05/19 Chief Complaint: Respiratory failure Subjective: Improving (Patient is improving unable to dialyze due to hypotension blood cultures pending tolerating BiPAP) Review of Systems General: Weakness Respiratory: Shortness of Breath Physical Examination - Vital Signs Temperature: 97.8 F Blood Pressure: 111/75 Pulse: 78 Respirations: 22 Pulse Ox (%): 94 - Physical Exam General: Alert, Oriented x3, Mild distress Cardiovascular: Regular rate/rhythm, Edema - Studies Laboratory Data (last 24 hrs) 09/05/19 04:50: Sodium 136, Potassium 4.7, BUN 38 H, Creatinine 5.37 H* D, Glucose 101, Uric Acid 3.5, Phosphorus 5.6 H D, Magnesium 1.9, Total Bilirubin 1.1 H, AST 19, ALT 17, Alkaline Phosphatase 87 09/05/19 04:50: WBC 8.1 D, Hgb 12.9 L, Hct 40.6, Plt Count 84 L D 09/05/19 04:50: Troponin I 0.02 09/04/19 22:03: Troponin I < 0.02 09/04/19 21:37: Troponin I Cancelled 09/04/19 13:55: Troponin I < 0.02 Microbiology Data (last 24 hrs): 09/04/19 22:03 Blood - Blood Anaerobic Blood Culture - Final Assessment & Plan - Problems (Diagnosis) (1) Respiratory failure Current Visit: Yes Status: Acute Plan: Patient admitted with respiratory failure I suspect is acute on chronic probably has underlying diastolic dysfunction he has underlying obstructive airways disease continue with bronchodilators cultures are pending maintain oxygen around 95% I have increased his peep CT pulmonary angiogram rule out PE venous Dopplers Qualifiers: Chronicity: acute on chronic
[2019-09-05] MEDS: MULTIVITAMINS,THERAPEUT 1 TAB PO SCH (12:35)
[2019-09-05] MEDS: CALCITROL 0.25 MCG CAP PO SCH (12:35)
[2019-09-05] MEDS ORDERED: VANCOMYCIN/NS 1 gm 1 GM/250 ML BAG IVPB SCH (14:15)
--- NOTE | 2019-09-05 15:42 | RAD REPORT ---
EXAM DESCRIPTION: USExtrem Venous W Compress Bil09/05/2019 3:30 pm CLINICAL HISTORY: Leg swelling COMPARISON: none FINDINGS: The common femoral, superficial femoral, popliteal and posterior tibial veins bilaterally are compressible and demonstrate augmentation. Doppler demonstrates good flow. IMPRESSION: No evidence of deep venous thrombosis involving either lower extremity.
--- NOTE | 2019-09-05 17:07 | RAD REPORT ---
EXAM DESCRIPTION: CT - Chest For Pe Angio - 09/05/2019 4:37 pm CLINICAL HISTORY: sob COMPARISON: None. TECHNIQUE: Dynamically enhanced axial 3 mm thick images of the chest were obtained during administra tion of <100> mL Isovue 370 IV contrast. Coronal and oblique reconstruction images were generated and reviewed. Exam utilizes a protocol for optimal evaluation of pulmonary arterial tree. Maximum intensity projections 3D imaging was utilized All CT scans are performed using dose optimization technique as appropriate and may include automated exposure control or mA/KV adjustment according to patient size. FINDINGS: A pulmonary embolus is not seen. A thoracic aortic aneurysm is not noted. Small to moderate pleural effusions. A pericardial effusion is not seen. Bibasilar atelectasis. Mild interstitial lung opacities bilaterally. Cardiomegaly Small amount ascites IMPRESSION: Negative for a pulmonary embolism. CHF
[2019-09-05] MEDS: NOREPINEPHRINE 8 MG in Dextrose 5%-Water 500 ML IV PRN (19:35)
[2019-09-05] MEDS ORDERED: CEFTRIAXONE/SWI 1gm 1 GM/10 ML SYR IV SCH (21:00)
--- NOTE | 2019-09-05 21:22 | P.PN ---
Date of Service: 09/05/19 Vital Signs Temp Pulse Resp BP Pulse Ox 98.9 F 98 H 30 H 82/19 L 96 09/05/19 20:00 09/05/19 20:00 09/05/19 20:00 09/05/19 20:00 09/05/19 20:00 Medications Acetaminophen (Tylenol -Extra Strength) 500 mg PO Q4HP PRN PRN Reason: Pain scale 2-4 (Mild) Stop: 10/02/19 09:41 Alprazolam (Xanax) 0.25 mg PO BEDTIME PRN PRN PRN Reason: INSOMNIA Stop: 10/02/19 09:41 Last Admin: 09/02/19 21:26 Dose: 0.25 mg Documented by: Arformoterol Tartrate (Brovana) 15 mcg NEB BIDRESP [facility] Stop: 10/04/19 11:37 Last Admin: 09/05/19 09:25 Dose: 15 mcg Documented by: Calcitriol (Rocaltrol) 0.5 mcg PO DAILY [place] Stop: 10/03/19 09:01 Last Admin: 09/05/19 12:35 Dose: 0.5 mcg Documented by: Cholecalciferol (Vitamin D 5,000 Iu Cap) 5,000 unit PO DAILY [place] Stop: 10/03/19 09:01 Last Admin: 09/05/19 09:34 Dose: 5,000 unit Documented by: Docusate Sodium (Colace Cap) 100 mg PO BID [place] Stop: 10/02/19 21:01 Last Admin: 09/05/19 09:34 Dose: 100 mg Documented by: Gabapentin (Neurontin) 300 mg PO TID [place] Stop: 10/02/19 21:01 Last Admin: 09/05/19 12:36 Dose: 300 mg Documented by: Heparin Sodium (Porcine) (Heparin 1,000 Units/Ml) 3,000 unit IV EVERY HD [place] Stop: 09/07/19 12:01 Albumin Human (Albumin 25%) 50 mls @ 100 mls/hr IV EVERY HD [place] Stop: 10/02/19 10:01 Last Admin: 09/02/19 11:56 Dose: 50 mls Documented by: Ceftriaxone Sodium/Sodium Chloride (Rocephin 1 Gm/10 Ml Swi Ivp) 1 gm in 10 mls @ 600 mls/hr IV BEDTIME [place]; Protocol Stop: 10/05/19 21:01 Vancomycin HCl (Vancomycin 1 Gm/250 Ml Ns Ivpb) 1 gm in 250 mls @ 150 mls/hr IVPB AFTER EACH DIALYSIS [facility]; Protocol Stop: 10/05/19 14:16 Norepinephrine Bitartrate 8 mg (/ Dextrose) 508 mls @ 0 mls/hr IV PRN PRN; Protocol PRN Reason: Hemodynamic Parameters Stop: 10/04/19 21:39 Last Admin: 09/05/19 19:35 Dose: 508 mls Documented by: Insulin Glargine (Lantus) 40 units SQ DAILY [place] Stop: 10/03/19 09:01 Last Admin: 09/05/19 09:34 Dose: 40 units Documented by: Insulin Human Regular (Novolin -R) 0 unit SQ ACHS [facility]; Protocol Stop: 10/02/19 11:31 Last Admin: 09/05/19 17:29 Dose: 3 unit Documented by: Levothyroxine Sodium (Synthroid) 0.1 mg PO [id number] [facility] Stop: 10/03/19 06:01 Last Admin: 09/05/19 06:00 Dose: Not Given Documented by: Mannitol (Mannitol 12.5 Gm/50 Ml Vial) 12.5 gm IV EVERY HD PRN PRN Reason: Titrate to SBP > 160 Stop: 10/02/19 09:23 Metoprolol Succinate (Toprol Xl) 25 mg PO [id number] [facility] Stop: 10/03/19 06:01 Last Admin: 09/05/19 06:00 Dose: Not Given Documented by: Midodrine (Proamatine) 10 mg PO EVERY HD [facility] Stop: 10/02/19 13:01 Sevelamer Carbonate (Renvela) 800 mg PO TIDWM [facility] Stop: 10/02/19 17:01 Last Admin: 09/05/19 17:28 Dose: 800 mg Documented by: Sodium Chloride (Normal Saline Flush) 10 ml IV BID [facility] Stop: 10/02/19 21:01 Last Admin: 09/05/19 09:38 Dose: 10 ml Documented by: Vitamin B Complex/Vit C/Folic Acid (Nephro-Trini) 1 tab PO DAILY [facility] Stop: 10/03/19 09:01 Last Admin: 09/05/19 12:35 Dose: 1 tab Documented by: Lab Results (last 24 hrs) 09/05/19 17:26: POC Glucose 175 H 09/05/19 12:05: POC Glucose 145 H 09/05/19 11:15: pH 7.23 L, pCO2 65.6 H, pO2 64.0 L, HCO3 26.3, Base Excess -0.5, Oxyhemoglobin 87.2 L, ABG O2 Sat (Measured) 90.2 L, ABG Carboxyhemoglobin 1.6 H, ABG Methemoglobin 1.7 H, Other Total Hgb 12.7, Inspired O2 50.0 09/05/19 08:37: POC Glucose 108 09/05/19 04:50: Sodium 136, Potassium 4.7, Chloride 102, Carbon Dioxide 24, BUN 38 H, Creatinine 5.37 H* D, Estimated GFR 10 L, Glucose 101, Uric Acid 3.5, Calcium 8.9, Phosphorus 5.6 H D, Magnesium 1.9, Total Bilirubin 1.1 H, AST 19, ALT 17, Alkaline Phosphatase 87, C-Reactive Protein 11.90 H, NT-Pro-B Natriuret Pep 53708 H, Serum Total Protein 8.2, Albumin 3.8, Globulin 4.4 H D, Albumin/Globulin Ratio 0.9 L 09/05/19 04:50: WBC 8.1 D, RBC 3.79 L, Hgb 12.9 L, Hct 40.6, MCV 107.3 H, MCH 34.1, MCHC 31.8 L, RDW 16.4 H, Plt Count 84 L D, MPV 11.6 H, Neutrophils % 58.0, Lymphocytes % 31.6, Monocytes % 8.9, Eosinophils % 1.1, Basophils % 0.4, Absolute Neutrophils 4.7, Absolute Lymphocytes 2.5, Absolute Monocytes 0.7, Absolute Eosinophils 0.1, Absolute Basophils 0.0, ESR Westergren 13 09/05/19 04:50: Troponin I 0.02 09/04/19 22:03: Procalcitonin 0.36 09/04/19 22:03: Lactic Acid 0.7 09/04/19 22:03: Creatine Kinase 21 L, CK-MB (CK-2) 1.6, Troponin I < 0.02 09/04/19 22:03: D-Dimer 1844 H* 09/04/19 21:37: Troponin I Cancelled 09/04/19 21:30: Procalcitonin Cancelled 09/04/19 21:00: pH 7.20 L, pCO2 70.9 H, pO2 72.2 L, HCO3 26.6, Base Excess -0.6, Oxyhemoglobin 89.9 L, ABG O2 Sat (Measured) 90.3 L, ABG Carboxyhemoglobin 0.0, ABG Methemoglobin 0.7, Other Total Hgb 11.8 L, Inspired O2 60.0 Microbiology Results 09/04/19 22:03 Blood - Blood Anaerobic Blood Culture - Final Assessment/ Plan: Nephrology Currently in the ICU stable on Bipap and Levophed. Limited IH/ ROS due to critical illness/ AMS. Vitals, medications, blood work and imaging reviewed in the chart. General: Oriented x3, Cooperative HEENT: Atraumatic Neck: Supple, No LAD, JVD distended Respiratory: Normal air movement, Right base rales. Cardiovascular: Regular rate/rhythm, Edema Gastrointestinal: Normal bowel sounds, Soft and benign, Distended Musculoskeletal: No clubbing, No contractures Integumentary: No rashes, No cyanosis Neurological: Normal speech EXAM DESCRIPTION: Demetri Pa And Lat (2 Views)09/02/2019 10:22 am CLINICAL HISTORY: Shortness of breath COMPARISON: May 2019 FINDINGS: [id number] bilateral pulmonary opacities. Small left pleural effusion. The heart is mildly enlarged. Pacemaker leads are in place. Postsurgical changes involve the chest IMPRESSION: Mild to moderate CHF Assessment and Plan A/ ESRD on HD Diastolic CHF, A/C Pulmonary HTN. Hypotension. Anemia in CKD JOVITA/ Secondary HyperPTH CAD PAD Familial HLD Steatohepatitis. Hypothyroidism. P/ Continue current POC and Medications. No HD today. Next HD Wednesday. CTA and LE Doppler ordered. Continue Bipap. Maintain pressure with Levophed due to hypotension. PT as tolerated. Low sodium diet. Fluid restriction. No NSAIDs. AM labs PRN. Daily weight. Case discussed with Dr. Monique and Dr. Vargas. Greater than 30min patient care.
[2019-09-05] MEDS ORDERED: AMIODARONE IN DEXTROSE,ISO-OSM 0 MG/0 ML BAG IV ONE (21:45)
[2019-09-05] MEDS ORDERED: D5W 0 ML IV ONE (21:45)
[2019-09-05] MEDS ORDERED: AMIODARONE HCL 150 MG/3 ML INJ IV ONE (21:45)
[2019-09-06] MEDS: NOREPINEPHRINE 8 MG in Dextrose 5%-Water 500 ML IV PRN ×2 (03:40→12:00)
[2019-09-06] MEDS: METOPROLOL XL 25 MG TAB PO SCH (03:48)
[2019-09-06] MEDS ORDERED: D5W 0 ML IV ONE ×2 (05:15→05:16)
[2019-09-06] MEDS ORDERED: AMIODARONE HCL 150 MG/3 ML INJ IV ONE (05:15)
[2019-09-06] MEDS: LEVOTHYROXINE SOD 0.1 MG TAB PO SCH (06:45)
[2019-09-06] MEDS: ARFORMOTEROL TARTRATE 15 MCG/2 ML VIAL.NEB NEB SCH ×2 (08:04→20:40)
[2019-09-06 09:02] LABS: Absolute Lymphocytes (CBC) 2.1 K/uL (0.7-4.9); Basophils % 0.4 % (0-1.3); Hematocrit 40.8 % (39.6-49.0); Lymphocytes % 29.2 % (15.3-44.8); MPV 10.1 fL (7.6-11.3); RBC Red Blood Cell Count 3.87 M/uL (4.33-5.43)
[2019-09-06] MEDS ORDERED: HYDROCORTISONE SUC 100 MG INJ IV ONE (09:03)
[2019-09-06] MEDS: VITAMIN D 5,000 UNIT CAP PO SCH (09:21)
[2019-09-06] MEDS: DOCUSATE NA 100 MG CAP PO SCH ×2 (09:21→22:06)
[2019-09-06] MEDS ORDERED: WATER FOR INJ,STERILE 10 ML ONE ×2 (09:21→22:07)
[2019-09-06] MEDS: GABAPENTIN 300 MG CAP PO SCH ×3 (09:22→22:06)
[2019-09-06] MEDS: MIDODRINE HCL 5 MG TABLET PO SCH ×3 (09:22→22:10)
[2019-09-06] MEDS: CALCITROL 0.25 MCG CAP PO SCH (09:22)
[2019-09-06] MEDS: SEVELAMER CARBONATE 800 MG TABLET PO SCH ×3 (09:22→16:38)
[2019-09-06] MEDS: MULTIVITAMINS,THERAPEUT 1 TAB PO SCH (09:22)
[2019-09-06 09:23] LABS: Albumin 3.3 g/dL (3.4-5.0); Bilirubin Total 0.8 mg/dL (0.2-1.0); Potassium 4.7 mmol/L (3.5-5.1); Protein, Total 7.6 g/dL (6.4-8.2)
[2019-09-06] MEDS: INSULIN -REGULAR HUMAN 50 UNIT/0.5 ML ML SQ SCH ×4 (09:25→22:09)
[2019-09-06] MEDS: INSULIN GLARGINE 100 UNITS/ML SQ SCH (09:33)
[2019-09-06] MEDS ORDERED: LACTULOSE 20 GM/30 ML UCUP PO ONE (09:51)
[2019-09-06] MEDS: ALBUMIN HUMAN 25% 50 ML IV SCH ×2 (12:03→12:12)
--- NOTE | 2019-09-06 12:37 | PN ---
Date of Progress Note: 09/06/2019 Interval History: Patient has remained in the ICU. He is on 17 mcg of Levophed at this time because of hypotension. His Levophed has needed to be titrated up. He remained on BiPAP overnight and it h as been taken off for him to have breakfast this morning. He is almost finished up with his breakfas t. His O2 sats are in the upper 80s, increased to 90s upon bumping the oxygen to 6 L of nasal cannul a. The patient denies any shortness of breath at this time. He denies any pain. He is complaining of constipation and has not had a bowel movement ever since he has been admitted to the hospital. Physical Examination: Vital Signs: At this time are showing temperature of 98.8, blood pressure of 102/79, respiratory rat e of 26, pulse rate of 89. General: He appears in no acute distress. HEENT: Atraumatic head. Lungs: Auscultation of lungs revealed diminished breath sounds at bilateral bases. Heart: Auscultation of the heart revealed regular rate and rhythm. Abdomen: Soft and nontender. Extremities: Showed some anasarca. Laboratory Data: At this time are showing sodium of 132, potassium of 4.7 , BUN of 55, and creatinine of 7.09. His CBC is showing hemoglobin of 13, hematocrit of 40.8, and platelet count of 80. Cortisol level was 16.9, phosphorus was elevated to 8.4. LFTs are within normal limits. Albumi n was low at 3.3. His blood cultures have been negative so far. Current Medications: Include, Tylenol p.r.n., albumin with dialysis, Xanax p.r.n., calcitriol 0.5 mc g daily, Rocephin 1 g at bedtime, vitamin D, gabapentin 300 mg 3 times a day, 1 time dose of hydrocor tisone, insulin Lantus subcutaneously daily, levothyroxine. Midodrine 5 mg 3 times a day has been added. Levophed titrated according to the blood pressure. Vancomycin 1 time dose has also been given. Impression: 1.End-stage renal disease, on dialysis. 2.Hypotension, etiology likely secondary to low cardiac output. The patient is noted to have diasto lic heart failure with severe pulmonary hypertension. He could be probably preload dependent. He is on Levophed at this time. He is mentating okay. However, he does have anasarca and volume overload , for which he will need a fluid removal, which we are unable to do so because of his severe hypotens ion, which is pressor dependent. At this time, we would like to try some midodrine and hydrocortison e even though his cortisol levels are okay and see how he does. If the hypotension is persistent aft er that, we would like to transfer him for higher level of care for initiation of continuous venoveno us hemofiltration to improve his volume status and also his hypotension. 3.Anemia of chronic disease, currently stable. 4.End-stage renal disease, on dialysis. 5.Hyperphosphatemia. 6.Severe debility and weakness. 7.Pulmonary hypertension, likely secondary pulmonary hypertension. 8.Hypothyroidism. Plan: Patient is overall doing okay at this time. However, he is still pressor dependent with sever e persistent hypotension. We will plan for dialysis today with minimal ultrafiltration with low BFR with albumin support. We will try hydrocortisone and midodrine on a standing basis to see if his blo od pressure can be improved and he can be weaned off the pressors and we will follow up closely. He has he is being treated with antibiotics empirically. Blood cultures, however, have been so far nega tive and leukocytosis is also absent. His prognosis remains guarded. We have discussed with his fam sumanth also regarding his prognosis and discussed that he possibly may need to be transferred for a high er level of care. We will continue to follow up closely. VV/MODL Voice ID: [id number] Report ID: [id number]
--- NOTE | 2019-09-06 12:44 | PN ---
Date of Progress Note: 09/06/2019 Mr. Castlelano is a gentleman who has end-stage renal disease, on hemodialysis; peripheral arterial disease , status post femoral bypass; status post carotid endarterectomy. He is status post CABG as well. H as congestive heart failure that is diastolic with pulmonary hypertension, normal ejection fraction. He has diabetes and COPD. He has been having blood pressure that is very labile. He is on Levophed still. No cardiac complaint. He is in a sinus rhythm. He does have a rather wide pulse pressure t hat we normally see mostly in pulmonary hypertension and aortic valve disease, which he does not have . This could certainly be related to his diastolic dysfunction as well. I do not really have much i n way of further recommendations regarding his cardiac regimen. I think other form of dialysis is be ing considered on him. I will discuss the case further with Dr. Beyer. JAMAAL/GILLIAN Voice ID: [id number] Report ID: [id number]
[2019-09-06] MEDS: HYDROCORTISONE SUC 100 MG INJ IV SCH (22:10)
[2019-09-07] MEDS ORDERED: NOREPINEPHRINE 4mg/D5W 250mL 4 MG/250 ML BAG IV ONE (00:04)
[2019-09-07 05:23] LABS: Absolute Lymphocytes (CBC) 1.5 K/uL (0.7-4.9); Basophils % 0.4 % (0-1.3); Lymphocytes % 25.9 % (15.3-44.8); MPV 9.8 fL (7.6-11.3); RBC Red Blood Cell Count 3.65 M/uL (4.33-5.43)
[2019-09-07 05:44] LABS: Albumin 3.3 g/dL (3.4-5.0); Bilirubin Total 0.7 mg/dL (0.2-1.0); Phosphorus 6.1 mg/dL (2.5-4.9); Potassium 4.6 mmol/L (3.5-5.1); Protein, Total 7.5 g/dL (6.4-8.2)
[2019-09-07] MEDS: METOPROLOL XL 25 MG TAB PO SCH (06:00)
[2019-09-07] MEDS: LEVOTHYROXINE SOD 0.1 MG TAB PO SCH (07:08)
[2019-09-07] MEDS: ARFORMOTEROL TARTRATE 15 MCG/2 ML VIAL.NEB NEB SCH ×2 (07:35→19:15)
[2019-09-07] MEDS: INSULIN -REGULAR HUMAN 50 UNIT/0.5 ML ML SQ SCH ×4 (08:48→20:22)
[2019-09-07] MEDS: COENZYME Q10- 200 MG CAP PO SCH (08:55)
[2019-09-07] MEDS: INSULIN GLARGINE 100 UNITS/ML SQ SCH (08:55)
[2019-09-07] MEDS: GABAPENTIN 300 MG CAP PO SCH ×3 (08:56→20:22)
[2019-09-07] MEDS: MIDODRINE HCL 5 MG TABLET PO SCH ×3 (08:56→20:23)
[2019-09-07] MEDS: SEVELAMER CARBONATE 800 MG TABLET PO SCH ×3 (08:56→16:54)
[2019-09-07] MEDS: HYDROCORTISONE SUC 100 MG INJ IV SCH ×2 (08:56→20:23)
[2019-09-07] MEDS: VITAMIN D 5,000 UNIT CAP PO SCH (08:56)
[2019-09-07] MEDS: DOCUSATE NA 100 MG CAP PO SCH ×2 (08:56→20:21)
[2019-09-07] MEDS ORDERED: WATER FOR INJ,STERILE 10 ML ONE (08:59)
--- NOTE | 2019-09-07 08:59 | P.PN ---
Subjective Date of Service: 09/07/19 Chief Complaint: Respiratory failure Subjective: Improving (Patient is improving hemodynamically more stable slowly weaned off Levophed tolerating dialysis) Review of Systems General: Weakness Respiratory: Shortness of Breath Physical Examination - Vital Signs Temperature: 97 F Blood Pressure: 109/81 Pulse: 80 Respirations: 12 Pulse Ox (%): 95 - Physical Exam General: Alert, In no apparent distress, Oriented x3 Respiratory: Clear to auscultation bilaterally, Diminished Cardiovascular: Regular rate/rhythm, Edema - Studies Laboratory Data (last 24 hrs) 09/07/19 05:01: Sodium 132 L, Potassium 4.6, BUN 40 H, Creatinine 5.85 H* D, Glucose 215 H, Phosphorus 6.1 H, Magnesium 2.0, Total Bilirubin 0.7, AST 13 L, ALT 14, Alkaline Phosphatase 76 09/07/19 05:01: WBC 5.9 D, Hgb 12.5 L, Hct 39.0 L, Plt Count 64 L 09/06/19 08:55: Sodium 132 L, Potassium 4.7, BUN 55 H, Creatinine 7.09 H* D, Glucose 161 H, Total Bilirubin 0.8, AST 13 L, ALT 14, Alkaline Phosphatase 84 09/06/19 08:55: WBC 7.0, Hgb 13.0 L, Hct 40.8, Plt Count 80 L Assessment & Plan - Problems (Diagnosis) (1) Respiratory failure Current Visit: Yes Status: Acute Plan: Patient admitted with respiratory failure hypotensive use responded well to steroids no evidence of sepsis tolerating dialysis slowly weaned off Levophed ti trate sat to 90% repeat blood gases patient is on bronchodilators echocardiogram shows pulmonary hypertension patient has bilateral pleural effusions a combination of diastolic dysfunction volume overload from his renal failure Qualifiers: Chronicity: acute on chronic
[2019-09-07] MEDS: MULTIVITAMINS,THERAPEUT 1 TAB PO SCH (09:19)
[2019-09-07] MEDS: CALCITROL 0.25 MCG CAP PO SCH (09:19)
[2019-09-07 10:30] LABS: Arterial Blood Carboxyhemoglob 1.2 % (0-1.5); Blood Gas Oxyhemoglobin 84.7 % (94-97); Blood O2 Saturation 87.2 % (92-98.5)
--- NOTE | 2019-09-07 11:20 | PN ---
Date of Progress Note: 09/07/2019 Subjective: Mr. Castellano is a patient who has end-stage renal disease, on hemodialysis, peripheral arter ial disease, cerebrovascular disease, coronary artery disease, status post CABG. He also has a histo ry of diabetes, COPD, and acute on chronic diastolic congestive heart failure with hypotension, possi paty secondary to cardiorenal syndrome and maybe cardiac low output. He remains on pressors, midodrin e, and steroids were started yesterday in an effort to wean him off from his pressors. He is not res ponding to dialysis well, remained volume overloaded. Chest x-ray shows CHF. He is on antibiotics, Levophed, insulin, midodrine, and steroids. His vital signs are stable. He is still on BiPAP with a dequate O2 saturation. Last hemoglobin is 12.5. Last white count is 5.9. His glucose was 240. His last creatinine is 5.85. There is a possible plan for continuous venovenous hemofiltration in a [facility] facility. I will leave that up to Dr. Beeyr to decide. No change in his medical therapy fr om a cardiac standpoint. NB/MODL Voice ID: [id number] Report ID: [id number]
--- NOTE | 2019-09-07 15:24 | P.PN ---
Date of Service: 09/07/19 Vital Signs Temp Pulse Resp BP Pulse Ox 97 F 80 15 107/48 L 89 L 09/07/19 08:59 09/07/19 13:00 09/07/19 13:00 09/07/19 13:00 09/07/19 13:00 Medications Acetaminophen (Tylenol -Extra Strength) 500 mg PO Q4HP PRN PRN Reason: Pain scale 2-4 (Mild) Stop: 10/02/19 09:41 Alprazolam (Xanax) 0.25 mg PO BEDTIME PRN PRN PRN Reason: INSOMNIA Stop: 10/02/19 09:41 Last Admin: 09/02/19 21:26 Dose: 0.25 mg Documented by: Arformoterol Tartrate (Brovana) 15 mcg NEB BIDRESP [place] Stop: 10/04/19 11:37 Last Admin: 09/07/19 07:35 Dose: 15 mcg Documented by: Calcitriol (Rocaltrol) 0.5 mcg PO DAILY [place] Stop: 10/03/19 09:01 Last Admin: 09/07/19 09:19 Dose: 0.5 mcg Documented by: Cholecalciferol (Vitamin D 5,000 Iu Cap) 5,000 unit PO DAILY [place] Stop: 10/03/19 09:01 Last Admin: 09/07/19 08:56 Dose: 5,000 unit Documented by: Coenzyme Q10 (Coenzyme Q10) 200 mg PO DAILY [place] Stop: 10/07/19 09:01 Last Admin: 09/07/19 08:55 Dose: 200 mg Documented by: Docusate Sodium (Colace Cap) 100 mg PO BID [place] Stop: 10/02/19 21:01 Last Admin: 09/07/19 08:56 Dose: 100 mg Documented by: Gabapentin (Neurontin) 300 mg PO TID [place] Stop: 10/02/19 21:01 Last Admin: 09/07/19 12:45 Dose: 300 mg Documented by: Hydrocortisone Sodium Succinate (Solu-Cortef) 50 mg IV Q12HR [place] Stop: 10/06/19 21:01 Last Admin: 09/07/19 08:56 Dose: 50 mg Documented by: Albumin Human (Albumin 25%) 50 mls @ 100 mls/hr IV EVERY HD [facility] Stop: 10/02/19 10:01 Last Admin: 09/06/19 12:12 Dose: 50 mls Documented by: Norepinephrine Bitartrate 8 mg (/ Dextrose) 508 mls @ 0 mls/hr IV PRN PRN; Protocol PRN Reason: Hemodynamic Parameters Stop: 10/04/19 21:39 Last Admin: 09/06/19 12:00 Dose: 508 mls Documented by: Insulin Glargine (Lantus) 40 units SQ DAILY [facility] Stop: 10/03/19 09:01 Last Admin: 09/07/19 08:55 Dose: 40 units Documented by: Insulin Human Regular (Novolin -R) 0 unit SQ ACHS [facility]; Protocol Stop: 10/02/19 11:31 Last Admin: 09/07/19 12:44 Dose: 5 unit Documented by: Levothyroxine Sodium (Synthroid) 0.1 mg PO [id number] [facility] Stop: 10/03/19 06:01 Last Admin: 09/07/19 07:08 Dose: 0.1 mg Documented by: Mannitol (Mannitol 12.5 Gm/50 Ml Vial) 12.5 gm IV EVERY HD PRN PRN Reason: Titrate to SBP > 160 Stop: 10/02/19 09:23 Metoprolol Succinate (Toprol Xl) 25 mg PO [id number] [facility] Stop: 10/03/19 06:01 Last Admin: 09/07/19 06:00 Dose: Not Given Documented by: Midodrine (Proamatine) 5 mg PO TID [facility] Stop: 10/06/19 14:01 Last Admin: 09/07/19 12:45 Dose: 5 mg Documented by: Sevelamer Carbonate (Renvela) 800 mg PO TIDWM [facility] Stop: 10/02/19 17:01 Last Admin: 09/07/19 12:45 Dose: 800 mg Documented by: Sodium Chloride (Normal Saline Flush) 10 ml IV BID [facility] Stop: 10/02/19 21:01 Last Admin: 09/07/19 08:57 Dose: Not Given Documented by: Vitamin B Complex/Vit C/Folic Acid (Nephro-Trini) 1 tab PO DAILY [facility] Stop: 10/03/19 09:01 Last Admin: 09/07/19 09:19 Dose: 1 tab Documented by: Lab Results (last 24 hrs) 09/07/19 12:34: POC Glucose 206 H 09/07/19 09:50: pH 7.15 L, pCO2 72.5 H, pO2 62.1 L, HCO3 24.0, Base Excess -3.8, Oxyhemoglobin 84.7 L, ABG O2 Sat (Measured) 87.2 L, ABG Carboxyhemoglobin 1.2, ABG Methemoglobin 1.7 H, Other Total Hgb 12.1, Inspired O2 44.0 09/07/19 05:01: Sodium 132 L, Potassium 4.6, Chloride 97 L, Carbon Dioxide 27, BUN 40 H, Creatinine 5.85 H* D, Estimated GFR 9 L, Glucose 215 H, Calcium 8.1 L, Phosphorus 6.1 H, Magnesium 2.0, Total Bilirubin 0.7, AST 13 L, ALT 14, Alkaline Phosphatase 76, Serum Total Protein 7.5, Albumin 3.3 L, Globulin 4.2 H, Albumin/Globulin Ratio 0.8 L 09/07/19 05:01: WBC 5.9 D, RBC 3.65 L, Hgb 12.5 L, Hct 39.0 L, MCV 106.9 H, MCH 34.2, MCHC 32.0, RDW 16.0 H, Plt Count 64 L, MPV 9.8, Neutrophils % 69.4, Lymphocytes % 25.9, Monocytes % 4.3, Eosinophils % 0.0, Basophils % 0.4, Absolute Neutrophils 4.1, Absolute Lymphocytes 1.5, Absolute Monocytes 0.3, Absolute Eosinophils 0.0, Absolute Basophils 0.0 09/06/19 20:43: POC Glucose 240 H 09/06/19 16:45: POC Glucose 194 H 09/04/19 05:42: Homocysteine 17.1 H Microbiology Results 09/04/19 22:20 Blood - Blood Aerobic Blood Culture - Preliminary No growth in 24 hours. 09/04/19 22:20 Blood - Blood Anaerobic Blood Culture - Preliminary No growth in 24 hours. 09/04/19 22:03 Blood - Blood Aerobic Blood Culture - Preliminary No growth in 24 hours. 09/04/19 22:03 Blood - Blood Anaerobic Blood Culture - Final Assessment/ Plan: Nephrology Currently in the ICU stable on Bipap and Levophed. Unable to wean Bipap or Levophed. Limited IH/ ROS due to critical illness/ AMS. HD yesterday with ~1 liter UF requiring Levophed therapy. Case reviewed with his . Vitals, medications, blood work and imaging reviewed in the chart. General: Oriented, Cooperative HEENT: Atraumatic Neck: Supple, No LAD, JVD distended Respiratory: Normal air movement, Right base rales. Cardiovascular: Regular rate/rhythm, Edema Gastrointestinal: Normal bowel sounds, Soft and benign, Distended Musculoskeletal: No clubbing, No contractures Integumentary: No rashes, No cyanosis Neurological: Normal speech EXAM DESCRIPTION: Demetri Frazier And Lat (2 Views)09/02/2019 10:22 am CLINICAL HISTORY: Shortness of breath COMPARISON: May 2019 FINDINGS: [id number] bilateral pulmonary opacities. Small left pleural effusion. The heart is mildly enlarged. Pacemaker leads are in place. Postsurgical changes involve the chest IMPRESSION: Mild to moderate CHF EXAM DESCRIPTION: CT - Chest For Pe Angio - 09/05/2019 4:37 pm CLINICAL HISTORY: sob COMPARISON: None. TECHNIQUE: Dynamically enhanced axial 3 mm thick images of the chest were obtained during administration of <100> mL Isovue 370 IV contrast. Coronal and oblique reconstruction images were generated and reviewed. Exam utilizes a protocol for optimal evaluation of pulmonary arterial tree. Maximum intensity projections 3D imaging was utilized All CT scans are performed using dose optimization technique as appropriate and may include automated exposure control or mA/KV adjustment according to patient size. FINDINGS: A pulmonary embolus is not seen. A thoracic aortic aneurysm is not noted. Small to moderate pleural effusions. A pericardial effusion is not seen. Bibasilar atelectasis. Mild interstitial lung opacities bilaterally. Cardiomegaly Small amount ascites IMPRESSION: Negative for a pulmonary embolism. CHF Echocardiogram [id number]: MODERATE PULMONARY HYPERTENSION RIGHT VENTRICULAR SYSTOLIC PRESSURE 47 mmHg. MILD TRICUSPID REGURGITATION. NORMAL EJECTION FRACTION. MITRAL ANNULAR CALCIFICATION. AORTIC SCLEROSIS, NO STENOSIS. Assessment and Plan A/ ESRD on HD Diastolic CHF, A/C Pulmonary HTN. Hypotension. Anemia in CKD JOVITA/ Secondary HyperPTH CAD PAD Familial HLD Steatohepatitis. Hypothyroidism. P/ Continue current POC and Medications. Next HD here tomorrow if unable to transfer soon. Continue Bipap. Maintain pressure with Levophed due to hypotension. PT as tolerated. Low sodium diet. Fluid restriction. No NSAIDs. AM labs PRN. Daily weight. Will initiate a transfer for [facility] due to acute CHF in the setting of persistent hypotension. Case discussed with Dr. Vargas. Greater than 30min patient care.
[2019-09-07] MEDS: NOREPINEPHRINE 8 MG in Dextrose 5%-Water 500 ML IV PRN (19:37)
[2019-09-08] MEDS: METOPROLOL XL 25 MG TAB PO SCH (06:00)
[2019-09-08] MEDS: LEVOTHYROXINE SOD 0.1 MG TAB PO SCH (06:00)
[2019-09-08 06:16] LABS: Absolute Lymphocytes (CBC) 1.9 K/uL (0.7-4.9); Basophils % 0.2 % (0-1.3); Hematocrit 39.3 % (39.6-49.0); Lymphocytes % 28.6 % (15.3-44.8); MPV 10.3 fL (7.6-11.3); RBC Red Blood Cell Count 3.67 M/uL (4.33-5.43)
[2019-09-08 06:40] LABS: Potassium 4.8 mmol/L (3.5-5.1)
[2019-09-08] MEDS: ARFORMOTEROL TARTRATE 15 MCG/2 ML VIAL.NEB NEB SCH ×2 (07:30→20:10)
[2019-09-08] MEDS: GABAPENTIN 300 MG CAP PO SCH ×3 (08:01→20:28)
[2019-09-08] MEDS: HYDROCORTISONE SUC 100 MG INJ IV SCH (08:01)
[2019-09-08] MEDS: VITAMIN D 5,000 UNIT CAP PO SCH (08:01)
[2019-09-08] MEDS: SEVELAMER CARBONATE 800 MG TABLET PO SCH ×3 (08:01→16:36)
[2019-09-08] MEDS: DOCUSATE NA 100 MG CAP PO SCH ×2 (08:02→20:29)
[2019-09-08] MEDS: MIDODRINE HCL 5 MG TABLET PO SCH ×3 (08:02→20:29)
[2019-09-08] MEDS: INSULIN -REGULAR HUMAN 50 UNIT/0.5 ML ML SQ SCH ×4 (08:05→20:29)
[2019-09-08] MEDS: COENZYME Q10- 200 MG CAP PO SCH (08:06)
[2019-09-08] MEDS: CALCITROL 0.25 MCG CAP PO SCH (08:08)
[2019-09-08] MEDS: MULTIVITAMINS,THERAPEUT 1 TAB PO SCH (08:08)
[2019-09-08 08:43] VITALS: O2SAT 95
[2019-09-08] MEDS ORDERED: INSULIN GLARGINE 100 UNITS/ML SQ SCH (09:00)
[2019-09-08] MEDS ORDERED: WATER FOR INJ,STERILE 10 ML IV SCH ×2 (09:00)
[2019-09-08 09:24] LABS: Anisocytosis 1+; Blood Morphology Comment NOTED (NOT SEEN); Platelet Estimate ADEQ; Urine White Blood Cell Casts OK
[2019-09-08 09:25] LABS: Macrocytosis 1+
[2019-09-08 10:33] LABS: Blood Gas Oxyhemoglobin 89.1 % (94-97); Blood O2 Saturation 91.6 % (92-98.5)
--- NOTE | 2019-09-08 12:03 | P.PN ---
Subjective Date of Service: 09/08/19 Chief Complaint: Respiratory failure shock Patient's condition is stable there has been no changes still requiring Levophed and BiPAP hypoxic acidotic most likely respiratory no evidence of sepsis Review of Systems General: Weakness Respiratory: Shortness of Breath Physical Examination - Vital Signs Temperature: 97.0 F Blood Pressure: 98/39 Pulse: 80 Respirations: 19 Pulse Ox (%): 89 - Physical Exam General: Alert, Oriented x3 Respiratory: Clear to auscultation bilaterally, Diminished Cardiovascular: Normal S1 S2, Edema - Studies Laboratory Data (last 24 hrs) 09/08/19 05:40: Sodium 133 L, Potassium 4.8, BUN 54 H, Creatinine 6.69 H*, Glucose 249 H 09/08/19 05:40: WBC 6.7, Hgb 12.6 L, Hct 39.3 L, Plt Count 113 L D Assessment & Plan - Problems (Diagnosis) (1) Respiratory failure Current Visit: Yes Status: Acute Plan: Patient has a respiratory failure and is in shock requiring Levophed blood cultures are all negative with change him over to p.o. prednisone Dc IV Solu- Medrol BiPAP settings IPAP 16, EPAP 6 overall prognosis very poor patient wants to be full code agree with an LTAC Qualifiers: Chronicity: acute on chronic
--- NOTE | 2019-09-08 13:01 | P.PN ---
Date of Service: 09/08/19 Vital Signs Temp Pulse Resp BP Pulse Ox 97.0 F 80 19 98/39 L 89 L 09/08/19 12:03 09/08/19 12:03 09/08/19 12:03 09/08/19 12:03 09/08/19 12:03 Medications Acetaminophen (Tylenol -Extra Strength) 500 mg PO Q4HP PRN PRN Reason: Pain scale 2-4 (Mild) Stop: 10/02/19 09:41 Arformoterol Tartrate (Brovana) 15 mcg NEB BIDRESP [place] Stop: 10/04/19 11:37 Last Admin: 09/08/19 07:30 Dose: 15 mcg Documented by: Calcitriol (Rocaltrol) 0.5 mcg PO DAILY [place] Stop: 10/03/19 09:01 Last Admin: 09/08/19 08:08 Dose: 0.5 mcg Documented by: Cholecalciferol (Vitamin D 5,000 Iu Cap) 5,000 unit PO DAILY [place] Stop: 10/03/19 09:01 Last Admin: 09/08/19 08:01 Dose: 5,000 unit Documented by: Coenzyme Q10 (Coenzyme Q10) 200 mg PO DAILY [place] Stop: 10/07/19 09:01 Last Admin: 09/08/19 08:06 Dose: 200 mg Documented by: Docusate Sodium (Colace Cap) 100 mg PO BID [place] Stop: 10/02/19 21:01 Last Admin: 09/08/19 08:02 Dose: 100 mg Documented by: Gabapentin (Neurontin) 300 mg PO TID [place] Stop: 10/02/19 21:01 Last Admin: 09/08/19 08:01 Dose: 300 mg Documented by: Albumin Human (Albumin 25%) 50 mls @ 100 mls/hr IV EVERY HD [place] Stop: 10/02/19 10:01 Last Admin: 09/06/19 12:12 Dose: 50 mls Documented by: Norepinephrine Bitartrate 8 mg (/ Dextrose) 508 mls @ 0 mls/hr IV PRN PRN; Protocol PRN Reason: Hemodynamic Parameters Stop: 10/04/19 21:39 Last Admin: 09/07/19 19:37 Dose: 508 mls Documented by: Insulin Glargine (Lantus) 45 units SQ DAILY [place] Stop: 10/08/19 09:01 Last Admin: 09/08/19 08:06 Dose: 45 units Documented by: Insulin Human Regular (Novolin -R) 0 unit SQ ACHS [facility]; Protocol Stop: 10/02/19 11:31 Last Admin: 09/08/19 12:43 Dose: 5 unit Documented by: Levothyroxine Sodium (Synthroid) 0.1 mg PO [id number] [place] Stop: 10/03/19 06:01 Last Admin: 09/08/19 06:00 Dose: 0.1 mg Documented by: Mannitol (Mannitol 12.5 Gm/50 Ml Vial) 12.5 gm IV EVERY HD PRN PRN Reason: Titrate to SBP > 160 Stop: 10/02/19 09:23 Midodrine (Proamatine) 5 mg PO TID [facility] Stop: 10/06/19 14:01 Last Admin: 09/08/19 08:02 Dose: 5 mg Documented by: Prednisone (Deltasone) 20 mg PO BID [facility] Stop: 10/08/19 21:01 Sevelamer Carbonate (Renvela) 800 mg PO TIDWM [facility] Stop: 10/02/19 17:01 Last Admin: 09/08/19 12:00 Dose: Not Given Documented by: Sodium Chloride (Normal Saline Flush) 10 ml IV BID [facility] Stop: 10/02/19 21:01 Last Admin: 09/08/19 08:08 Dose: 10 ml Documented by: Sterile Water (Sterile Water For Inj (10 Ml Vial)) 2 ml IV Q12HR [facility] Stop: 10/08/19 09:01 Last Admin: 09/08/19 08:15 Dose: Not Given Documented by: Vitamin B Complex/Vit C/Folic Acid (Nephro-Trini) 1 tab PO DAILY [facility] Stop: 10/03/19 09:01 Last Admin: 09/08/19 08:08 Dose: 1 tab Documented by: Lab Results (last 24 hrs) 09/08/19 12:32: POC Glucose 228 H 09/08/19 10:01: pH 7.16 L, pCO2 70.9 H, pO2 74.8 L, HCO3 24.0, Base Excess -3.7, Oxyhemoglobin 89.1 L, ABG O2 Sat (Measured) 91.6 L, ABG Carboxyhemoglobin 1.0, ABG Methemoglobin 1.7 H, Other Total Hgb 13.0, Inspired O2 50.0 09/08/19 07:58: POC Glucose 204 H 09/08/19 05:40: Sodium 133 L, Potassium 4.8, Chloride 95 L, Carbon Dioxide 25, BUN 54 H, Creatinine 6.69 H*, Estimated GFR 8 L, Glucose 249 H, Calcium 8.2 L 09/08/19 05:40: WBC 6.7, RBC 3.67 L, Hgb 12.6 L, Hct 39.3 L, MCV 107.3 H, MCH 34.4, MCHC 32.1, RDW 16.3 H, Plt Count 113 L D, MPV 10.3, Neutrophils % 65.5, Lymphocytes % 28.6, Monocytes % 5.7, Eosinophils % 0.0, Basophils % 0.2, Absolute Neutrophils 4.4, Absolute Lymphocytes 1.9, Absolute Monocytes 0.4, Absolute Eosinophils 0.0, Absolute Basophils 0.0, Anisocytosis 1+, Macrocytosis 1+, Morphology Comment Noted 09/07/19 20:18: POC Glucose 324 H 09/07/19 16:51: POC Glucose 224 H Microbiology Results 09/04/19 22:20 Blood - Blood Aerobic Blood Culture - Preliminary No growth in 24 hours. 09/04/19 22:20 Blood - Blood Anaerobic Blood Culture - Preliminary No growth in 24 hours. 09/04/19 22:03 Blood - Blood Aerobic Blood Culture - Preliminary No growth in 24 hours. 09/04/19 22:03 Blood - Blood Anaerobic Blood Culture - Final Assessment/ Plan: Nephrology Currently in the ICU and stable on Bipap and Levophed. Unable to wean Bipap or Levophed. Improved mentation. Able to feed himself off bipap earlier. No acute events overnight. Vitals, medications, blood work and imaging reviewed in the chart. General: Oriented, Cooperative HEENT: Atraumatic Neck: Supple, No LAD, JVD distended Respiratory: Normal air movement, Right base rales. Cardiovascular: Regular rate/rhythm, Edema Gastrointestinal: Normal bowel sounds, Soft and benign, Distended Musculoskeletal: No clubbing, No contractures Integumentary: No rashes, No cyanosis Neurological: Normal speech EXAM DESCRIPTION: Demetri Frazier And Concetta (2 Views)09/02/2019 10:22 am CLINICAL HISTORY: Shortness of breath COMPARISON: May 2019 FINDINGS: [id number] bilateral pulmonary opacities. Small left pleural effusion. The heart is mildly enlarged. Pacemaker leads are in place. Postsurgical changes involve the chest IMPRESSION: Mild to moderate CHF EXAM DESCRIPTION: CT - Chest For Pe Angio - 09/05/2019 4:37 pm CLINICAL HISTORY: sob COMPARISON: None. TECHNIQUE: Dynamically enhanced axial 3 mm thick images of the chest were obtained during administration of <100> mL Isovue 370 IV contrast. Coronal and oblique reconstruction images were generated and reviewed. Exam utilizes a protocol for optimal evaluation of pulmonary arterial tree. Maximum intensity projections 3D imaging was utilized All CT scans are performed using dose optimization technique as appropriate and may include automated exposure control or mA/KV adjustment according to patient size. FINDINGS: A pulmonary embolus is not seen. A thoracic aortic aneurysm is not noted. Small to moderate pleural effusions. A pericardial effusion is not seen. Bibasilar atelectasis. Mild interstitial lung opacities bilaterally. Cardiomegaly Small amount ascites IMPRESSION: Negative for a pulmonary embolism. CHF Echocardiogram 564127: MODERATE PULMONARY HYPERTENSION RIGHT VENTRICULAR SYSTOLIC PRESSURE 47 mmHg. MILD TRICUSPID REGURGITATION. NORMAL EJECTION FRACTION. MITRAL ANNULAR CALCIFICATION. AORTIC SCLEROSIS, NO STENOSIS. Assessment and Plan A/ ESRD on HD Diastolic CHF, A/C Pulmonary HTN. Hypotension. Anemia in CKD JOVITA/ Secondary HyperPTH CAD PAD Familial HLD Steatohepatitis. Hypothyroidism. P/ Continue current POC and Medications. Acute HD ordered for today. Give IV Albumin. Continue Bipap. ABG poor off bipap. Maintain pressure with Levophed due to hypotension. PT as tolerated. Low sodium diet. Fluid restriction. Add compression stockings today. No NSAIDs. AM labs PRN. Daily weight. Transfer initiated for [facility] due to acute CHF in the setting of persistent hypotension. Transfer pending. Greater than 30min patient care.
--- NOTE | 2019-09-08 14:10 | RAD REPORT ---
EXAM DESCRIPTION: RAD - Barium Swallow Modified - 09/08/2019 2:00 pm CLINICAL HISTORY: dysphagia COMPARISON: Abdomen Exam Complete dated 09/02/2019 TECHNIQUE: The patient was given liquid, semi-solid and solid forms of barium. Lateral view fluorosc opic imaging was performed in conjunction with speech pathology service. FINDINGS: There is reduced oral bolus manipulation and increased oral transit time. A delay in swal low is noted with with increase in viscosity (4-7sec). There is pooling in the valleculae before the swallow. There is no penetration or aspiration noted with any consistency tested including thin, nec tar, honey, pureed, or solid. There is mild redidue on the base of tongue, valleculae and pyriforms with all consistancies. Reduced opening of the upper esophageal sphincter is noted and there is eleno is at the level of the UES. Mild backflow is noted from the UES to the pyriforms. Barium tablet was passed with thin liquid without incident. Final pureed bolus passed into the lower esophagus. Esop hageal reflux was noted. Total fluoroscopy time: 2 minutes and 59 seconds
[2019-09-08] MEDS: ALBUMIN HUMAN 25% 50 ML IV SCH ×3 (14:58→16:27)
--- NOTE | 2019-09-08 17:18 | PN ---
Date of Progress Note: 09/08/2019 History Of Present Illness: Mr. Castellano remains rather in a guarded condition. He remains hypotensive despite midodrine and steroids. We are unable to wean him off BiPAP as well as Levophed. He is not getting any antihypertensive therapy. He did receive hemodialysis yesterday and about 1 L was taken off. He is having some confusion, altered mental status issues. He remains hypotensive with blood p ressure of 85/60. He is in a paced rhythm. Laboratory Studies: His last creatinine is 6.69. He is on BiPAP with an O2 saturation of 93%. Hemo globin is 12. Glucose was 324. There is a plan to transfer him for continuous venovenous hemofiltration. Dr. Beyer had discussed this case with his family. Again, no further cardiac recommendation at this point. JAMAAL/GILLIAN Voice ID: [id number] Report ID: [id number]
[2019-09-08] MEDS: predniSONE 20 MG TAB PO SCH (20:28)
[2019-09-09 04:58] LABS: Absolute Lymphocytes (CBC) 1.8 K/uL (0.7-4.9); Basophils % 0.2 % (0-1.3); MPV 10.8 fL (7.6-11.3); RBC Red Blood Cell Count 3.57 M/uL (4.33-5.43)
[2019-09-09 05:43] LABS: Potassium 4.6 mmol/L (3.5-5.1)
[2019-09-09] MEDS: LEVOTHYROXINE SOD 0.1 MG TAB PO SCH (06:04)
[2019-09-09] MEDS: INSULIN -REGULAR HUMAN 50 UNIT/0.5 ML ML SQ SCH ×2 (07:55→12:30)
[2019-09-09] MEDS: ARFORMOTEROL TARTRATE 15 MCG/2 ML VIAL.NEB NEB SCH (08:00)
[2019-09-09] MEDS: COENZYME Q10- 200 MG CAP PO SCH (08:27)
[2019-09-09] MEDS: MULTIVITAMINS,THERAPEUT 1 TAB PO SCH (08:27)
[2019-09-09] MEDS: VITAMIN D 5,000 UNIT CAP PO SCH (08:27)
[2019-09-09] MEDS: MIDODRINE HCL 5 MG TABLET PO SCH (08:28)
[2019-09-09] MEDS: SEVELAMER CARBONATE 800 MG TABLET PO SCH (08:28)
[2019-09-09] MEDS: DOCUSATE NA 100 MG CAP PO SCH (08:28)
[2019-09-09] MEDS: CALCITROL 0.25 MCG CAP PO SCH (08:28)
[2019-09-09] MEDS: predniSONE 20 MG TAB PO SCH (08:28)
[2019-09-09] MEDS ORDERED: ALBUMIN HUMAN 25% 100 ML IV ONE (08:30)
[2019-09-09] MEDS: GABAPENTIN 300 MG CAP PO SCH (08:30)
[2019-09-09] MEDS ORDERED: INSULIN GLARGINE 100 UNITS/ML SQ SCH (09:00)
--- NOTE | 2019-09-09 10:27 | RAD REPORT ---
EXAM DESCRIPTION: RAD - Chest Single View - 09/09/2019 9:21 am CLINICAL HISTORY: R/O Fluid Vol Overload COMPARISON: Portable September 04, CT chest September 04 TECHNIQUE: AP portable chest image was obtained 09/09/2019 9:21 am . FINDINGS: Lung volumes are very low which accentuates heart, vasculature and lung findings. Bilatera l pleural effusions with lung base atelectasis still present. Cardiomegaly is present with vascular e ngorgement. No pneumothorax. No acute bony abnormality seen. No acute aortic findings suspected. IMPRESSION: CHF pattern is present but shows improvement from September 04.
--- NOTE | 2019-09-09 10:36 | P.PN ---
Subjective Date of Service: 09/09/19 Chief Complaint: Respiratory failure shock No change in patient's condition is still requiring Levophed and is on BiPAP eating and drinking well unable to wean off the Levophed Review of Systems General: Weakness Respiratory: Shortness of Breath Physical Examination - Vital Signs Temperature: 97.9 F Blood Pressure: 130/56 Pulse: 80 Respirations: 23 Pulse Ox (%): 96 - Physical Exam General: Alert, Oriented x3 Respiratory: Clear to auscultation bilaterally, Diminished Cardiovascular: No edema, Normal S1 S2 - Studies Laboratory Data (last 24 hrs) 09/09/19 04:45: Sodium 134 L, Potassium 4.6, BUN 39 H, Creatinine 5.60 H* D, Glucose 235 H 09/09/19 04:45: WBC 6.8, Hgb 12.2 L, Hct 38.0 L, Plt Count 88 L D Assessment & Plan - Problems (Diagnosis) (1) Respiratory failure Current Visit: Yes Status: Acute Plan: Continue with present supportive therapy with BiPAP and Levophed increase midodrine reduce dose of prednisone Qualifiers: Chronicity: acute on chronic
[2019-09-09 11:18] LABS: Thyroid Stimulating Hormone 2.81 uIU/mL (0.360-3.740)
[2019-09-09 11:29] VITALS: TEMP 97.4
[2019-09-09 12:23] VITALS: BP 128/23
--- NOTE | 2019-09-09 12:36 | PN ---
Date of Progress Note: 09/09/2019 Subjective: Patient seen and examined at bedside. He continues to be on Levophed about 5 to 6 mcg, which is being slowly weaned down. He continues to have shortness of breath, anasarca, remains on Bi PAP. He has been unable to be weaned off the BiPAP. Physical Examination: Vital Signs: Have been reviewed and are stable. Blood pressure in the 120s to 130s systolic and wanda stolic in the 50s to 60s. Temperature of 97.9. General: He appears in no acute distress on BiPAP. HEENT: Exam is atraumatic head. Lungs: Auscultation the lungs revealed diminished breath sounds at bilateral bases. Heart: Auscultation of the heart revealed regular rate and rhythm. Abdomen: Soft with anasarca. Extremities: Also, showed anasarca with pitting edema in dependent areas. Neuro: He is alert, awake, and oriented x3. Laboratory Data: Showing sodium of 134, potassium of 4.6, chloride of 98, BUN of 39, and creatinine of 5.6. CBC showing hemoglobin of 12.2, hematocrit of 38, and platelet count of 88. Chest x-ray was done this morning showing evidence of CHF with slight improvement compared to 3 days ago. Current Medications: Have been reviewed in detail. He remains on albumin with dialysis, vitamin D, gabapentin, insulin, levothyroxine, midodrine 10 mg 3 times a day, prednisone 20 mg b.i.d., Renvela, and CoQ10. Impression: 1.End-stage renal disease, on dialysis. 2.Volume overload leading to congestive heart failure and underlying diastolic heart failure with pu lmonary hypertension. He is preload dependent and hence with severe persistent hypotension with jennifer shonna of fluid. 3.Hypotension secondary to cardiogenic shock. 4.Anemia secondary to chronic disease prior. Currently stable. 5.Thrombocytopenia, stable. 6.Type 2 diabetes, on insulin. 7.Severe debility and weakness. Plan: Patient continues to be overall unchanged patient's condition. We are attempting transfer to multiple locations, but we are being denied because of lack of availability of beds as well as a CRRT machines. We will continue transfer trying to transfer the patient for CRRT to [facility]. Discussed with the multiple transfer centers regarding his condition. We will start him on l ow-dose heparin for deep vein thrombosis prophylaxis and monitor his thrombocytopenia. We will plan for dialysis today and ultrafiltration of about 1 L as tolerated. Continue albumin, support with wanda lysis. Patient's condition remains critical at this time. We will continue to monitor closely. Plan was di scussed with the patient's nurse at bedside as well as the patient. Everybody has been updated regar ding the plan of care. Family has been updated regarding transfer progress as well. VV/MODL Voice ID: [id number] Report ID: [id number]
[2019-09-09] MEDS ORDERED: MIDODRINE HCL 5 MG TABLET PO SCH (14:00)
[2019-09-09] MEDS ORDERED: HEPARIN 5000 UNIT/ML 1 ML VIAL SQ SCH (21:00)
--- NOTE | 2019-09-10 13:22 | PN ---
Date of Progress Note: 09/09/2019 Mr. Castellano remains in ICU. He has end-stage renal disease, on hemodialysis, unresponsive to Levophed, remains hypotensive. He has acute on chronic diastolic congestive heart failure with normal ejection fraction, pulmonary hypertension. Has peripheral arterial disease, coronary artery disease status p ost CABG, diabetes, and COPD. He remains on BiPAP with saturation of 93%. There appears to be a ilana n for continuous venovenous hemofiltration and he has been transferred for that. Family is aware of the grave situation. No change in his medical therapy from a cardiac standpoint. NB/MODL Voice ID: [id number] Report ID: [id number]
== END 2019-09-09 12:35 | disposition short-term general hospital (02) | DRG 291 ==
LOC: OBSVTOIN 08:57 → 2ND 08:57 → 3RD-ICU 09-04 20:55
PROVIDERS: ADMIT Internal Medicine Nephrology; ATTEND Internal Medicine Nephrology
PROC: 5A1D70Z Performance of Urinary Filtration, Intermittent, Less than 6 Hours Per Day (ICD-10-PCS; principal; 2019-09-08)
DX: I13.2 Hypertensive heart and chronic kidney disease with heart failure and with stage 5 chronic kidney disease, or end stage renal disease (principal); I50.33 Acute on chronic diastolic (congestive) heart failure; N18.6 End stage renal disease; R57.0 Cardiogenic shock; G92 Toxic encephalopathy; J96.22 Acute and chronic respiratory failure with hypercapnia; J96.21 Acute and chronic respiratory failure with hypoxia; E11.22 Type 2 diabetes mellitus with diabetic chronic kidney disease; E87.70 Fluid overload, unspecified; Z79.4 Long term (current) use of insulin; Z79.890 Hormone replacement therapy; Z79.899 Other long term (current) drug therapy; I25.2 Old myocardial infarction; E03.9 Hypothyroidism, unspecified; Z95.5 Presence of coronary angioplasty implant and graft; Z87.891 Personal history of nicotine dependence; D63.1 Anemia in chronic kidney disease; I25.10 Atherosclerotic heart disease of native coronary artery without angina pectoris; E11.51 Type 2 diabetes mellitus with diabetic peripheral angiopathy without gangrene; E78.49 Other hyperlipidemia; E21.3 Hyperparathyroidism, unspecified; Z99.2 Dependence on renal dialysis; I27.20 Pulmonary hypertension, unspecified; Z95.1 Presence of aortocoronary bypass graft; J44.9 Chronic obstructive pulmonary disease, unspecified; D63.8 Anemia in other chronic diseases classified elsewhere; D69.6 Thrombocytopenia, unspecified; K75.81 Nonalcoholic steatohepatitis (NASH); R53.81 Other malaise; Z86.73 Personal history of transient ischemic attack (TIA), and cerebral infarction without residual deficits; E11.40 Type 2 diabetes mellitus with diabetic neuropathy, unspecified
CPT/HCPCS: 36415; 71045; 71046; 71275; 74230; 76700; 80048; 80053; 82533; 82550; 82553; 82607; 82746; 82805; 82947; 83090; 83605; 83735; 83880; 84100; 84145; 84439; 84443; 84484; 84550; 85025; 85379; 85652; 86140; 86317; 87040; 87340; 90935; 92611; 93306; 93970; 94660; 94760; 97110; 97116; 97161; 97530; J0282; J0696; J1644; J1720; J1815; J3370; J7030; J7060; J7512; J7605; P9047; Q5106; Q9967